=== PATIENT | male | born 1950 | race Caucasian/White ===

== ENCOUNTER 2022-06-26 10:43 | Outpatient (REF) | payer OTHER, SELFPAY ==
[2022-06-26 14:36] LABS: Alanine Aminotransferase 29 U/L (0-40); Albumin Level 4.2 g/dL (3.5-5.0); Alkaline Phosphatase 94 U/L (39-117); Anion Gap 12 (12-20); Aspartate Amino Transferase 20 U/L (5-37); Bilirubin Total 0.9 mg/dL (0.0-1.0); Blood Urea Nitrogen 20 mg/dL (9-16); Calcium 9.3 mg/dL (8.4-10.2); Carbon Dioxide 29 mmol/L (22-29); Chloride 103 mmol/L (96-108); Cholesterol 141 mg/dL; Estimated Glomerular Filt Rate > 60; Glucose Random 111 mg/dL (60-115); HDL Cholesterol 48 mg/dL; LDL Cholesterol Calculated 69 mg/dl; Magnesium 1.8 mg/dL (1.6-2.6); Phosphorus 2.3 mg/dL (2.7-4.5); Potassium 3.8 mmol/L (3.3-5.1); Sodium 140 mmol/L (135-145); Total Protein 6.8 g/dL (6.5-8.0); Triglycerides 121 mg/dL
[2022-06-26 14:37] LABS: Hematocrit 46.6 % (42.0-52.0); Hemoglobin 15.8 g/dl (14.0-18.0); Mean Corpuscular HGB Conc 33.9 g/dl (31.0-36.0); Mean Corpuscular Hemoglobin 31.7 pg (27.0-33.0); Mean Corpuscular Volume 93.4 fL (80.0-98.0); Mean Platelet Volume 9.4 fL (9.4-12.4); Platelet Count 187 X10*3/uL (160-400); Red Blood Count 4.99 X10*6/uL (4.60-5.80); Red Cell Distribution Width 12.5 % (11.0-16.0); White Blood Count 8.3 X10*3/uL (4.8-10.8)
[2022-06-26 14:53] LABS: TSH reflex Free T4 1.83 uIU/mL (0.32-4.0)
== END 2022-06-26 10:44 | disposition home or self-care (01) ==
LOC: HO.WFDLDS 10:43
PROVIDERS: Visit Provider Hospitalist
DX: Z00.00 Encounter for general adult medical examination without abnormal findings (principal); K21.9 Gastro-esophageal reflux disease without esophagitis; E11.9 Type 2 diabetes mellitus without complications; I10 Essential (primary) hypertension; E66.3 Overweight
CPT/HCPCS: 36415; 80053; 80061; 83735; 84100; 84443; 85027

== ENCOUNTER 2022-10-03 12:39 | Outpatient (AMB) | payer OTHER, SELFPAY ==
[2022-10-03 12:46] VITALS: BP 152/80; PULSE 76; O2SAT 97; BMI 29.6
--- NOTE | 2022-10-03 12:46 | MHC.PC.OV ---
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 Required: No Accompanied by: Self / Same As Patient Allergies No Known Allergies Allergy (Verified 10/03/22 12:57) Medication List - Last Reconciled 10/03/22 by Keven Traore CNP amlodipine 10 mg PO DAILY 30 days atorvastatin 40 mg PO DAILY 30 days benazepril 20 mg PO BID blood pressure test kit-medium As directed chlorthalidone 25 mg PO DAILY 30 days citalopram 40 mg PO DAILY 30 days metformin 500 mg PO BID 30 days metoprolol succinate ER 50 mg PO DAILY 30 days omeprazole 20 mg PO DAILY 30 days sod phos di, mono-K phos mono 250 mg (Phospha Neutral) 1 tab PO BID tamsulosin 0.4 mg PO DAILY 30 days Tobacco use date assessed: 10/03/22 Fall risk assessment: No Falls in past year Last assessed Fall Risk: 10/03/22 Dental Screening Dental Screen Date: 10/03/22 Did you have a dental visit in the last 12 months?: Yes Did you have a dental problem in the last 6 months where you did not have access to dental care?: No Was dental information given to patient?: Patient has dentist HPI HPI Comments History of Present Illness Details 72-year-old male presents for medication refill He notes that he ran out of his antihypertensive medications 2-3 weeks ago No acute symptoms today. [facility] Medical History Acid reflux Arthritis Depression Diabetes Low back pain Overweight Rotator cuff arthropathy of left shoulder Umbilical hernia Surgical History Previous back surgery Family History Father High blood pressure Mother Cancer Social History Housing: Condominium Patient Tobacco Use Status: Former Tobacco user e-Cigarette/Vaping Use: Never Used service: No Current occupational status: retired Cognitive needs: No Hearing needs: No Vision needs: Yes Review of Systems Const Details: Const Denies chills, Denies fatigue, Denies fever(s), Denies headache(s) and Denies weakness ENT Denies dizziness and Denies headache(s) Card Denies chest pain, Denies lightheadedness, Denies dyspnea and Denies other (Palpitations) Resp Denies cough, Denies dyspnea, Denies wheezing and Denies other ( shortness of breath) GI Denies abdominal pain, Denies melena, Denies hematochezia, Denies change in bowel habits, Denies dyspepsia and Denies nausea Denies hematuria and Denies dysuria Musc Denies abnormal gait, Denies myalgias, Denies arthralgias, Denies numbness and Denies tingling Skin/Breast Denies rash, Denies unusual bruising and Denies wounds Neuro Denies abnormal gait, Denies dizziness, Denies headache(s), Denies memory loss, Denies numbness, Denies Sensory deficit (Neuro), Denies tingling and Denies weakness Psych Denies anxiety and Denies depression Endo Denies fatigue Aller/Immun Denies wheezing Physical exam (Primary Care) Vital Signs: Last Vital Signs Pulse 76 10/03/22 12:46 BP 152/80 H 10/03/22 12:46 Pulse Ox 97 10/03/22 12:46 BMI result Body Mass Index 29.6 Tobacco/Smoking Status: Tobacco use Status Tobacco use date assessed 10/03/22 10/03/22 12:50 Patient Tobacco Use Status Former Tobacco user 10/03/22 12:50 e-Cigarette/Vaping Use Never Used 10/03/22 12:50 Const Other: General: no acute distress and well developed Nutritional Appearance: well nourished Orientation/consciousness: patient oriented x3 HENMT Head: Yes normocephalic and Yes atraumatic Eyes General: appearance normal, both eyes and all related structures Pupils: Equal, round and reactive pupils present EOM: EOMs intact bilaterally Resp Effort & Inspection: normal respiratory effort Auscultation: clear to auscultation bilaterally Cardio Rate: regular rate Rhythm: regular rhythm Heart sounds: S1 normal heart sound present, S2 normal heart sound present, no gallops, no murmurs and no rubs GI Palpation (GI): No Abdominal aortic bruit present, Soft to palpation, nontender, No hepatosplenomegaly present and No Rebound tenderness present Auscultation: normal bowel sounds General: Yes no CVA tenderness Back/Spine/Pelvis Back: no CVA tenderness Cervical Spine: cervical ROM normal and No Cervical spine tenderness Thoracic/Lumbar Spine: thoraco-lumbar ROM normal, No pain with thoraco-lumbar ROM, No thoracic spinal tenderness and No lumbar spinal tenderness Extrem General: Yes normal to inspection, No edema and No calf tenderness Skin General: warm and dry. Normal skin color. Normal skin turgor Lesions: no lesions Rashes: no rashes Trauma: no lacerations or abrasions Wounds: no wounds Nails: normal Neuro General: patient oriented x3, gait normal and no focal neuro deficit Cranial nerves: Yes Equal, round and reactive pupils present Cognition (Neuro): normal cognition Gait exam (Neuro): Normal gait present Sensory Exam: No Sensory deficit (Neuro) Psych Affect: normal affect Results AMB Hemoglobin A1c AMB Hemoglobin A1c 6.1 % Last Edit by Tommy Delgado CMA on 10/03/22 13:21 Assessment and Plan Assessment & Plan (1) Hypertension: Code(s): I10 - Essential (primary) hypertension Plan: His blood pressure is 140/80, above goal of less than 130/80 Antihypertensive medications refilled. Take as prescribed Low-sodium diet encouraged Follow-up in 1 month or return sooner with concerns or symptoms Verbalized understanding and agreed with treatment plan. (2) Diabetes: Code(s): E11.9 - Type 2 diabetes mellitus without complications Plan: His A1c today 6.1%, within goal of less than 7.0% Take metformin as prescribed ADA diet and routine exercise encouraged Follow-up in 1 month or return sooner with symptoms or concerns Verbalized understanding and agreed with treatment plan. Orders: Orders AMB Hemoglobin A1c Today Z13.9 - Encounter for screening, unspecified Medications: Changed From amlodipine 10 mg PO DAILY 30 days 30 tabs 1RF To amlodipine 10 mg PO DAILY 90 days 90 tabs 0RF Refilled metoprolol succinate ER 50 mg PO DAILY 30 days 30 tabs 0RF chlorthalidone 25 mg PO DAILY 30 days 30 tabs 0RF benazepril 20 mg PO BID 60 tabs 2RF Coding Level of Care Code Est Pt Level 3 (85312) Diagnoses Hypertension I10 Diabetes E11.9 Time Spent (min) 25
[2022-10-03 13:10] VITALS: BP 140/80
== END 2022-10-03 13:14 | disposition home or self-care (01) ==
PROVIDERS: PCP Hospitalist; Visit Provider Nurse Practitioner Family
DX: I10 Essential (primary) hypertension (principal); E11.9 Type 2 diabetes mellitus without complications; Z13.9 Encounter for screening, unspecified
CPT/HCPCS: 83036; 99213

== ENCOUNTER 2022-11-28 12:48 | Outpatient (AMB) | payer OTHER, SELFPAY ==
[2022-11-28 12:51] VITALS: BP 142/80; PULSE 104; RESP 12; TEMP 36.5; O2SAT 97; BMI 28.7
--- NOTE | 2022-11-28 12:51 | MHC.PC.OV ---
Vital Signs 11/28/22 12:51 11/28/22 13:09 Height 5 ft 7 in Weight 183 lb 2 oz BMI 28.7 BP 142/80 H 140/70 H Blood Pressure Location Lt brachial Rt brachial Position Sitting Sitting Respiration 12 Pulse 104 H 100 Pulse Source Pulse Oximeter Palpation Temp 97.7 F Temp Source Temporal Artery Scan Pulse Oximetry (%) 97 Oxygen Delivery Method Room Air Intake Visit Reasons: 1 mos HTN Intake Note: Patient states that he has been having problems with your lower back. Patient would also like referral for an eye doctor. Patient states that he also has been having an on and off cough that seems kind of random and sometimes its shallow and sometimes its deep. 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 Required: No Accompanied by: Self / Same As Patient Allergies No Known Allergies Allergy (Verified 11/28/22 13:03) Medication List - Last Reconciled 11/28/22 by Keven Traore CNP amlodipine 10 mg PO DAILY 90 days atorvastatin 40 mg PO DAILY 30 days benazepril 20 mg PO BID blood pressure test kit-medium As directed chlorthalidone 25 mg PO DAILY 30 days citalopram 40 mg PO DAILY 30 days metformin 500 mg PO BID 30 days metoprolol succinate ER 50 mg PO DAILY 30 days omeprazole 20 mg PO DAILY 30 days sod phos di, mono-K phos mono 250 mg (Phospha Neutral) 1 tab PO BID tamsulosin 0.4 mg PO DAILY 30 days Tobacco use date assessed: 10/03/22 Fall risk assessment: No Falls in past year Last assessed Fall Risk: 11/28/22 Dental Screening Dental Screen Date: 11/28/22 Did you have a dental visit in the last 12 months?: Yes Did you have a dental problem in the last 6 months where you did not have access to dental care?: No Was dental information given to patient?: Patient has dentist HPI HPI Comments History of Present Illness Details 72-year-old male presents for hypertension follow-up. His blood pressure was elevated, 140/80 during his last visit His initial blood pressure reading today is 142/80 He notes he ran out of Amlodipine, Metoprolol, and Chlorthalidone and has not taken these medications for the past 1 week. He also notes he is out of Citalopram. He reports intermittent nonproductive for the past 2 months. No associated cold or respiratory symptoms. [facility] Medical History Overweight Umbilical hernia Rotator cuff arthropathy of left shoulder Depression Acid reflux Diabetes Arthritis Low back pain Surgical History Previous back surgery Family History Father High blood pressure Mother Cancer Social History Housing: Apartment Patient Tobacco Use Status: Former Tobacco user e-Cigarette/Vaping Use: Never Used service: No Current occupational status: retired Cognitive needs: No Hearing needs: No Vision needs: Yes Review of Systems Const Details: Const Denies chills, Denies fatigue, Denies fever(s), Denies headache(s) and Denies weakness ENT Denies dizziness and Denies headache(s) Card Denies chest pain, Denies lightheadedness, Denies dyspnea and Denies other (Palpitations) Resp Denies cough, Denies dyspnea, Denies wheezing and Denies other ( shortness of breath) GI Denies abdominal pain, Denies melena, Denies hematochezia, Denies change in bowel habits, Denies dyspepsia and Denies nausea Denies hematuria and Denies dysuria Musc Denies abnormal gait, Denies myalgias, Denies arthralgias, Denies numbness and Denies tingling Skin/Breast Denies rash, Denies unusual bruising and Denies wounds Neuro Denies abnormal gait, Denies dizziness, Denies headache(s), Denies memory loss, Denies numbness, Denies Sensory deficit (Neuro), Denies tingling and Denies weakness Psych Denies anxiety, Denies depression, Denies memory loss Endo Denies cold intolerance, Denies fatigue, Denies heat intolerance, Denies polydipsia and Denies polyuria Aller/Immun Denies wheezing Physical exam (Primary Care) Vital Signs: Last Vital Signs Temp 97.7 F 11/28/22 12:51 Pulse 104 H 11/28/22 12:51 Resp 12 11/28/22 12:51 BP 142/80 H 11/28/22 12:51 Pulse Ox 97 11/28/22 12:51 Oxygen Delivery Method Room Air 11/28/22 12:51 BMI result Body Mass Index 28.7 Tobacco/Smoking Status: Tobacco use Status Tobacco use date assessed 10/03/22 11/28/22 12:58 Patient Tobacco Use Status Former Tobacco user 11/28/22 12:58 e-Cigarette/Vaping Use Never Used 11/28/22 12:58 Const Other: General: no acute distress and well developed Nutritional Appearance: well nourished Orientation/consciousness: patient oriented x3 HENMT Head: Yes normocephalic and Yes atraumatic Eyes General: appearance normal, both eyes and all related structures Pupils: Equal, round and reactive pupils present EOM: EOMs intact bilaterally Resp Effort & Inspection: normal respiratory effort Auscultation: clear to auscultation bilaterally Cardio Rate: regular rate Rhythm: regular rhythm Heart sounds: S1 normal heart sound present, S2 normal heart sound present, no gallops, no murmurs and no rubs GI Palpation (GI): No Abdominal aortic bruit present, Soft to palpation, nontender, No hepatosplenomegaly present and No Rebound tenderness present Auscultation: normal bowel sounds General: Yes no CVA tenderness Back/Spine/Pelvis Back: no CVA tenderness Cervical Spine: cervical ROM normal and No Cervical spine tenderness Thoracic/Lumbar Spine: thoraco-lumbar ROM normal, No pain with thoraco-lumbar ROM, No thoracic spinal tenderness and No lumbar spinal tenderness Extrem General: Yes normal to inspection, No edema and No calf tenderness Skin General: warm and dry. Normal skin color. Normal skin turgor Lesions: no lesions Rashes: no rashes Trauma: no lacerations or abrasions Wounds: no wounds Nails: normal Neuro General: patient oriented x3, gait normal and no focal neuro deficit Cranial nerves: Yes Equal, round and reactive pupils present Cognition (Neuro): normal cognition Gait exam (Neuro): Normal gait present Sensory Exam: No Sensory deficit (Neuro) Psych Appearance: grossly normal Affect: normal affect Attitude: cooperative Thought process: Normal thought process present Assessment and Plan Assessment & Plan (1) Hypertension: Code(s): I10 - Essential (primary) hypertension Plan: Resting blood pressure is 140/70, above goal of less than 130/80 Medications refilled Continue with current treatment regimen Low-sodium diet encouraged Advised to check blood pressure daily, record readings, and bring to nurse visit Follow-up with nurse for blood pressure check in 1 week Return in 2 months for hypertension and diabetes follow-up or sooner with symptoms or concerns Verbalized understanding and agreed with treatment plan (2) Nonproductive cough: Code(s): R05.8 - Other specified cough Plan: Reports nonproductive cough off and on for the past 2 months. No associated viral or cold symptoms Likely due to adverse effect of benazepril Lisinopril discontinued Losartan ordered. Take with order antihypertensives as prescribed Return with worsening or new symptoms Verbalized understanding and agreed with treatment plan. Medications: New losartan 50 mg PO DAILY 30 days 30 tabs 3RF Refilled citalopram 40 mg PO DAILY 30 days 30 tabs 3RF amlodipine 10 mg PO DAILY 90 days 90 tabs 1RF chlorthalidone 25 mg PO DAILY 30 days 30 tabs 3RF metoprolol succinate ER 50 mg PO DAILY 30 days 30 tabs 3RF tamsulosin 0.4 mg PO DAILY 30 days 30 caps 1RF atorvastatin 40 mg PO DAILY 30 days 30 tabs 3RF Discontinued benazepril Discontinued Reason: Doctor's Order 20 mg PO BID 60 tabs 2RF Coding Level of Care Code Est Pt Level 3 (70831) Diagnoses Hypertension I10 Nonproductive cough R05.8
[2022-11-28 13:09] VITALS: BP 140/70; PULSE 100
== END 2022-11-28 13:22 | disposition home or self-care (01) ==
PROVIDERS: PCP Hospitalist; Visit Provider Nurse Practitioner Family
DX: I10 Essential (primary) hypertension (principal); R05.8 Other specified cough
CPT/HCPCS: 99213

== ENCOUNTER 2023-01-30 12:24 | Outpatient (AMB) | payer OTHER, SELFPAY ==
[2023-01-30 12:32] VITALS: BP 130/68; PULSE 63; O2SAT 96; BMI 30.9
--- NOTE | 2023-01-30 12:32 | A.OFFPC_ITS ---
Vital Signs 01/30/23 12:32 01/30/23 13:09 Height 5 ft 7 in Weight 197 lb 8 oz BMI 30.9 BP 130/68 120/60 Blood Pressure Location Lt brachial Rt brachial Position Sitting Sitting Pulse 63 Pulse Source Pulse Oximeter Pulse Oximetry (%) 96 Oxygen Delivery Method Room Air Intake Visit Reasons: f/u DM, HTN Intake Note: Patient is here to follow up on his diabetes and hypertension. Patient would refill on Metformin and Omeprazole. Allergies No Known Allergies Allergy (Verified 01/30/23 12:54) Medication List - Last Reconciled 01/30/23 by Keven Traore CNP amlodipine 10 mg PO DAILY 90 days atorvastatin 40 mg PO DAILY 30 days blood pressure test kit-medium As directed chlorthalidone 25 mg PO DAILY 30 days citalopram 40 mg PO DAILY 30 days losartan 50 mg PO DAILY 30 days metformin 500 mg PO BID 30 days metoprolol succinate ER 50 mg PO DAILY 30 days omeprazole 20 mg PO DAILY 30 days sod phos di, mono-K phos mono 250 mg (Phospha Neutral) 1 tab PO BID tamsulosin 0.4 mg PO DAILY 30 days Tobacco use date assessed: 01/30/23 Fall risk assessment: No Falls in past year Last assessed Fall Risk: 01/30/23 HPI HPI Comments History of Present Illness Details 72-year-old male presents for hypertensi on and diabetes follow-up He admits to taking his medications without adverse reactions He notes that his cough has improved since lisinopril was substituted with losartan He denies acute symptoms at this time He notes that he has an appointment scheduled for diabetic retinal exam next month [facility] Medical History Overweight Umbilical hernia Rotator cuff arthropathy of left shoulder Depression Acid reflux Diabetes Arthritis Low back pain Surgical History Previous back surgery Family History Father High blood pressure Mother Cancer Social History Housing: Apartment Patient Tobacco Use Status: Former Tobacco user e-Cigarette/Vaping Use: Never Used service: No Current occupational status: retired Cognitive needs: No Hearing needs: No Vision needs: Yes Review of Systems Const Details: Const Denies chills, Denies fatigue, Denies fever(s), Denies headache(s) and Denies weakness ENT Denies dizziness and Denies headache(s) Card Denies chest pain, Denies lightheadedness, Denies dyspnea and Denies other (Palpitations) Resp Denies cough, Denies dyspnea, Denies wheezing and Denies other ( shortness of breath) GI Denies abdominal pain, Denies melena, Denies hematochezia, Denies change in bowel habits, Denies dyspepsia and Denies nausea Denies hematuria and Denies dysuria Musc Denies abnormal gait, Denies myalgias, Denies arthralgias, Denies numbness and Denies tingling Skin/Breast Denies rash, Denies unusual bruising and Denies wounds Neuro Denies abnormal gait, Denies dizziness, Denies headache(s), Denies memory loss, Denies numbness, Denies Sensory deficit (Neuro), Denies tingling and Denies weakness Psych Denies anxiety, Denies depression, Denies memory loss Endo Denies cold intolerance, Denies fatigue, Denies heat intolerance, Denies polydipsia and Denies polyuria Aller/Immun Denies wheezing Physical exam (Primary Care) Vital Signs: Last Vital Signs Pulse 63 01/30/23 12:32 BP 130/68 01/30/23 12:32 Pulse Ox 96 01/30/23 12:32 Oxygen Delivery Method Room Air 01/30/23 12:32 BMI result Body Mass Index 30.9 Tobacco/Smoking Status: Tobacco use Status Tobacco use date assessed 01/30/23 01/30/23 12:39 Patient Tobacco Use Status Former Tobacco user 01/30/23 12:33 e-Cigarette/Vaping Use Never Used 01/30/23 12:33 Const Other: General: no acute distress and well developed Nutritional Appearance: well nourished Orientation/consciousness: patient oriented x3 HENMT Head: Yes normocephalic and Yes atraumatic Eyes General: appearance normal, both eyes and all related structures Pupils: Equal, round and reactive pupils present EOM: EOMs intact bilaterally Resp Effort & Inspection: normal respiratory effort Auscultation: clear to auscultation bilaterally Cardio Rate: regular rate Rhythm: regular rhythm Heart sounds: S1 normal heart sound present, S2 normal heart sound present, no gallops, no murmurs and no rubs GI Palpation (GI): No Abdominal aortic bruit present, Soft to palpation, nontender, No hepatosplenomegaly present and No Rebound tenderness present Auscultation: normal bowel sounds General: Yes no CVA tenderness Back/Spine/Pelvis Back: no CVA tenderness Cervical Spine: cervical ROM normal and No Cervical spine tenderness Thoracic/Lumbar Spine: thoraco-lumbar ROM normal, No pain with thoraco-lumbar ROM, No thoracic spinal tenderness and No lumbar spinal tenderness Extrem General: Yes normal to inspection, No edema and No calf tenderness Skin General: warm and dry. Normal skin color. Normal skin turgor Lesions: no lesions Rashes: no rashes Trauma: no lacerations or abrasions Wounds: no wounds Nails: normal Neuro General: patient oriented x3, gait normal and no focal neuro deficit Cranial nerves: Yes Equal, round and reactive pupils present Cognition (Neuro): normal cognition Gait exam (Neuro): Normal gait present Sensory Exam: No Sensory deficit (Neuro) Psych Appearance: grossly normal Affect: normal affect Attitude: cooperative Thought process: Normal thought process present Assessment and Plan Assessment & Plan (1) Diabetes: Code(s): E11.9 - Type 2 diabetes mellitus without complications Plan: A1c today is 6.3%, within goal of less than 7.0%. Previous A1c was 6.1% Continue with current treatment regimen ADA diet and routine exercise encouraged His last LDL in June 2022 was 69, within goal of less than 70. Will recheck lipid panel. Advised to fast for 10-12 hours, may drink water only, and get blood work done before his next visit No record of urine microalbumin/creatinine ratio. Will check urine micr oalbumin/creatinine ratio Follow-up next month with Ophthalmology for diabetic retinal exam Return in 3 months or sooner with symptoms or concerns Verbalized understanding and agreed with treatment plan (2) Hypertension: Code(s): I10 - Essential (primary) hypertension Qualifiers: Hypertension type: primary hypertension Qualified Code(s): I10 - Essential (primary) hypertension Plan: Resting blood pressure is 120/60, within goal of less than 130/80 Continue with current treatment regimen Low-sodium diet encouraged Follow-up in 3 months or return sooner with symptoms or concerns Verbalized understanding and agreed with treatment plan Orders: Orders Microalbumin, Random (w Creat) Today E11.9 - Type 2 diabetes mellitus without complications Lipid Panel Today E11.9 - Type 2 diabetes mellitus without complications Medications: Changed From omeprazole 20 mg PO DAILY 30 days 30 caps 1RF To omeprazole 20 mg PO DAILY 90 caps 1RF 90 days Refilled metformin 500 mg PO BID 60 tabs 3RF 30 days Coding Level of Care Code Est Pt Level 3 (02092) Diagnoses Diabetes E11.9 Primary hypertension I10 Hypertension type: primary hypertension
[2023-01-30 13:09] VITALS: BP 120/60
== END 2023-01-30 13:06 | disposition home or self-care (01) ==
PROVIDERS: PCP Nurse Practitioner Family; Visit Provider Nurse Practitioner Family
DX: E11.9 Type 2 diabetes mellitus without complications (principal); I10 Essential (primary) hypertension
CPT/HCPCS: 83036; 99213

== ENCOUNTER 2023-06-05 13:10 | Outpatient (AMB) | payer OTHER, SELFPAY ==
[2023-06-05 13:11] VITALS: BP 122/60; PULSE 77; RESP 13; TEMP 36.6; O2SAT 97; BMI 30.7
--- NOTE | 2023-06-05 13:11 | MHC.PC.OV ---
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 Accompanied by: Self / Same As Patient Allergies No Known Allergies Allergy (Verified 06/05/23 13:24) Medication List - Last Reconciled 06/05/23 by Keven Traore CNP amlodipine 10 mg PO DAILY 90 days atorvastatin 40 mg PO DAILY 30 days blood pressure test kit-medium As directed chlorthalidone 25 mg PO DAILY 30 days citalopram 40 mg PO DAILY 30 days losartan 50 mg PO DAILY 30 days metformin 500 mg PO BID 30 days metoprolol succinate ER 50 mg PO DAILY 30 days omeprazole 20 mg PO DAILY 90 days sod phos di, mono-K phos mono 250 mg (Phospha Neutral) 1 tab PO BID tamsulosin 0.4 mg PO DAILY 90 days Tobacco use date assessed: 06/05/23 Last assessed Fall Risk: 06/05/23 Dental Screening Dental Screen Date: 06/05/23 Did you have a dental visit in the last 12 months?: No Did you have a dental problem in the last 6 months where you did not have access to dental care?: No Was dental information given to patient?: Yes HPI HPI Comments History of Present Illness Details 72-year-old male presents for diabetes and hypertension follow-up He admits to taking his medications as prescribed without adverse reactions He offers no complaints and denies acute symptoms at this time [facility] Medical History Overweight Umbilical hernia Rotator cuff arthropathy of left shoulder Depression Acid reflux Diabetes Arthritis Low back pain Surgical History Previous back surgery Family History (Updated 06/05/23 @ 13:24 by JYOTI Macias) Father High blood pressure Mother Cancer Social History Housing: Apartment Patient Tobacco Use Status: Former Tobacco user e-Cigarette/Vaping Use: Never Used service: No Current occupational status: retired Cognitive needs: No Hearing needs: No Vision needs: No Review of Systems Const Details: Const Denies chills, Denies fatigue, Denies fever(s), Denies headache(s) and Denies weakness ENT Denies dizziness and Denies headache(s) Card Denies chest pain, Denies lightheadedness, Denies dyspnea and Denies other (Palpitations) Resp Denies cough, Denies dyspnea, Denies wheezing and Denies other ( shortness of breath) GI Denies abdominal pain, Denies melena, Denies hematochezia, Denies change in bowel habits, Denies dyspepsia and Denies nausea Denies hematuria and Denies dysuria Musc Denies abnormal gait, Denies myalgias, Denies arthralgias, Denies numbness and Denies tingling Skin/Breast Denies rash, Denies unusual bruising and Denies wounds Neuro Denies abnormal gait, Denies dizziness, Denies headache(s), Denies memory loss, Denies numbness, Denies Sensory deficit (Neuro), Denies tingling and Denies weakness Psych Denies anxiety, Denies depression, Denies memory loss Endo Denies cold intolerance, Denies fatigue, Denies heat intolerance, Denies polydipsia and Denies polyuria Aller/Immun Denies wheezing Physical exam (Primary Care) Vital Signs: Last Vital Signs Temp 98 F 06/05/23 13:11 Pulse 77 06/05/23 13:11 Resp 13 06/05/23 13:11 BP 122/60 06/05/23 13:11 Pulse Ox 97 06/05/23 13:11 Oxygen Delivery Method Room Air 06/05/23 13:11 BMI result Body Mass Index 30.7 Tobacco/Smoking Status: Tobacco use Status Tobacco use date assessed 01/30/23 06/05/23 13:17 Patient Tobacco Use Status Former Tobacco user 06/05/23 13:17 e-Cigarette/Vaping Use Never Used 06/05/23 13:17 Const Other: General: no acute distress and well developed Nutritional Appearance: well nourished Orientation/consciousness: patient oriented x3 HENMT Head: Yes normocephalic and Yes atraumatic Eyes General: appearance normal, both eyes and all related structures Pupils: Equal, round and reactive pupils present EOM: EOMs intact bilaterally Resp Effort & Inspection: normal respiratory effort Auscultation: clear to auscultation bilaterally Cardio Rate: regular rate Rhythm: regular rhythm Heart sounds: S1 normal heart sound present, S2 normal heart sound present, no gallops, no murmurs and no rubs GI Palpation (GI): No Abdominal aortic bruit present, Soft to palpation, nontender, No hepatosplenomegaly present and No Rebound tenderness present Auscultation: normal bowel sounds General: Yes no CVA tenderness Back/Spine/Pelvis Back: no CVA tenderness Cervical Spine: cervical ROM normal and No Cervical spine tenderness Thoracic/Lumbar Spine: thoraco-lumbar ROM normal, No pain with thoraco-lumbar ROM, No thoracic spinal tenderness and No lumbar spinal tenderness Extrem General: Yes normal to inspection, No edema and No calf tenderness Skin General: warm and dry. Normal skin color. Normal skin turgor Neuro General: patient oriented x3, gait normal and no focal neuro deficit Cranial nerves: Yes Equal, round and reactive pupils present Cognition (Neuro): normal cognition Gait exam (Neuro): Normal gait present Sensory Exam: No Sensory deficit (Neuro) Psych Appearance: grossly normal Affect: normal affect Attitude: cooperative Thought process: Normal thought process present Results AMB Hemoglobin A1c AMB Hemoglobin A1c 7.0 % Last Edit by JYOTI Macias on 06/05/23 13:27 Assessment and Plan Assessment & Plan (1) Hypertension: Code(s): I10 - Essential (primary) hypertension Qualifiers: Hypertension type: primary hypertension Qualified Code(s): I10 - Essential (primary) hypertension Plan: Blood pressure is 122/60, within goal of less than 130/80 Continue current treatment regimen Low-sodium diet encouraged Encouraged to get labs done before his next visit Follow-up in 1 month for an extended physical exam Return sooner with symptoms or concerns Verbalized understanding and agreed with treatment plan (2) Diabetes: Code(s): E11.9 - Type 2 diabetes mellitus without complications Plan: A1c today is 7.0%, slightly above goal of less than 7.0%. Previous A1c was 6.3% Glipizide 5 mg daily ordered. Take as prescribed ADA diet and routine exercise encouraged His last diabetic eye exam was on 03/07/2023 Will recheck A1c in 3 months Verbalized understanding and agreed with the treatment plan Orders: Orders AMB Hemoglobin A1c Today E11.9 - Type 2 diabetes mellitus without complications Complete Blood Count Auto Diff Today Z00.00 - Encounter for general adult medical examination without abnormal findings TSH reflex Free T4 Today Z00.00 - Encounter for general adult medical examination without abnormal findings PSA, Ultra Sensitive Today Z00.00 - Encounter for general adult medical examination without abnormal findings Comprehensive Post. Panel Fast Today Z00.00 - Encounter for general adult medical examination without abnormal findings Lipid Panel Today E11.9 - Type 2 diabetes mellitus without complications, Z00.00 - Encounter for general adult medical examination without abnormal findings UA CC w/rflx Micro + Cult Today Z00.00 - Encounter for general adult medical examination without abnormal findings Microalbumin, Random (w Creat) Today E11.9 - Type 2 diabetes mellitus without complications Medications: New glipizide 5 mg PO DAILY 30 tabs 3RF 30 days Coding Level of Care Code Est Pt Level 4 (83668) Diagnoses Primary hypertension I10 Hypertension type: primary hypertension Diabetes E11.9
== END 2023-06-05 13:37 | disposition home or self-care (01) ==
PROVIDERS: PCP Nurse Practitioner Family; Visit Provider Nurse Practitioner Family
DX: I10 Essential (primary) hypertension (principal); E11.9 Type 2 diabetes mellitus without complications
CPT/HCPCS: 83036; 99214

== ENCOUNTER 2023-07-23 10:43 | Outpatient (REF) | payer OTHER, SELFPAY ==
[2023-07-23 14:34] LABS: MANUAL DIFF FLAG NO
[2023-07-23 14:36] LABS: Appearance Urine Clear; Color Urine Dark Yellow; Glucose Urine UA Negative (Negative); Leukocyte Esterase Urine Negative (Negative); Nitrite Urine Negative (Negative); PH 7.5 (5.0-9.0); Specific Gravity - Urine 1.025 (1.005-1.025); Urine Blood Negative (Negative); Urine Ketones Trace mg/dL (Negative); Urine Protein Negative (Neg-Trace)
[2023-07-23 14:40] LABS: Basophils Absolute Auto 0.1 X10*3/uL (0.0-0.2); Basophils Percent Auto 1.4 % (0-2); Eosinophils Absolute Auto 0.3 X10*3/uL (0.0-0.4); Hematocrit 41.5 % (42.0-52.0); Hemoglobin 14.5 g/dl (14.0-18.0); Imm Gran Abs Auto 0.02 X10*3/uL (0.00-0.03); Imm Gran Pct Auto 0.2 % (0.0-0.4); Lymphocytes Absolute Auto 2.3 X10*3/uL (1.2-4.9); Lymphocytes Percent Auto 27.4 % (20-40); Mean Corpuscular HGB Conc 34.9 g/dl (31.0-36.0); Mean Corpuscular Hemoglobin 31.7 pg (27.0-33.0); Mean Corpuscular Volume 90.6 fL (80.0-98.0); Mean Platelet Volume 9.2 fL (9.4-12.4); Monocytes Absolute Auto 0.7 X10*3/uL (0.1-1.2); Monocytes Percent Auto 8.7 % (2-11); Neutrophils Percent Auto 59.3 % (45-73); Platelet Count 196 X10*3/uL (160-400); Red Blood Count 4.58 X10*6/uL (4.60-5.80); Red Cell Distribution Width 12.5 % (11.0-16.0); White Blood Count 8.4 X10*3/uL (4.8-10.8)
[2023-07-23 15:02] LABS: Alanine Aminotransferase 19 U/L (0-40); Albumin Level 4.3 g/dL (3.5-5.0); Alkaline Phosphatase 82 U/L (39-117); Anion Gap 17 (12-20); Aspartate Amino Transferase 21 U/L (5-37); Bilirubin Total 0.7 mg/dL (0.0-1.0); Blood Urea Nitrogen 26 mg/dL (9-16); Calcium 9.7 mg/dL (8.4-10.2); Carbon Dioxide 23 mmol/L (22-29); Chloride 103 mmol/L (96-108); Cholesterol 123 mg/dL (<200); Estimated Glomerular Filt Rate 48; Glucose Fasting 102 mg/dL (60-99); HDL Cholesterol 43 mg/dL (>40); LDL Cholesterol Calculated 59 mg/dL (<100); Potassium 3.2 mmol/L (3.3-5.1); Sodium 140 mmol/L (135-145); Total Protein 7.3 g/dL (6.5-8.0); Triglycerides 106 mg/dL (<150)
[2023-07-23 15:05] LABS: Creatinine Urine 197.15 mg/dL; Microalbum/Creatinine Ratio Ur 5.5 ug/mg cr (<30)
[2023-07-23 15:19] LABS: TSH reflex Free T4 2.27 uIU/mL (0.32-4.0)
[2023-08-01 00:37] LABS: PSA, Ultra Sensitive 3.99 ng/mL
== END 2023-07-23 10:44 | disposition home or self-care (01) ==
LOC: HO.WFDLDS 10:43
PROVIDERS: Visit Provider Nurse Practitioner Family
DX: Z00.00 Encounter for general adult medical examination without abnormal findings (principal); E11.9 Type 2 diabetes mellitus without complications; Z12.5 Encounter for screening for malignant neoplasm of prostate
CPT/HCPCS: 36415; 80053; 80061; 81003; 82043; 82570; 84153; 84443; 85025

== ENCOUNTER 2023-08-17 15:02 | Outpatient (AMB) | payer OTHER, SELFPAY ==
--- NOTE | 2023-08-17 15:13 | A.OFFPC_ITS ---
Intake Visit Reasons: CPE AND LABS Allergies No Known Allergies Allergy (Verified 06/05/23 13:24) Tobacco use date assessed: 06/05/23 Dental Screening Dental Screen Date: 06/05/23 [facility] Medical History Overweight Umbilical hernia Rotator cuff arthropathy of left shoulder Depression Acid reflux Diabetes Arthritis Low back pain Surgical History Previous back surgery Family History (Updated 06/05/23 @ 13:24 by JYOTI Macias) Father High blood pressure Mother Cancer Social History Housing: Apartment Patient Tobacco Use Status: Former Tobacco user e-Cigarette/Vaping Use: Never Used service: No Current occupational status: retired Cognitive needs: No Hearing needs: No Vision needs: No Physical exam (Primary Care) Tobacco/Smoking Status: Tobacco use Status Tobacco use date assessed 06/05/23 06/05/23 13:25 Patient Tobacco Use Status Former Tobacco user 06/05/23 13:17 e-Cigarette/Vaping Use Never Used 06/05/23 13:17 Coding
--- NOTE | 2023-08-17 15:16 | A.OFFPC_ITS ---
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 Certified Required: No Accompanied by: Self / Same As Patient Allergies No Known Allergies Allergy (Verified 08/17/23 15:24) Medication List - Last Reconciled 08/17/23 by Keven Traore CNP amlodipine 10 mg PO DAILY 90 days atorvastatin 40 mg PO DAILY 30 days blood pressure test kit-medium As directed chlorthalidone 25 mg PO DAILY 30 days citalopram 40 mg PO DAILY 30 days glipizide 5 mg PO DAILY 30 days losartan 50 mg PO DAILY 30 days metformin 500 mg PO BID 30 days metoprolol succinate ER 50 mg PO DAILY 30 days omeprazole 20 mg PO DAILY 90 days sod phos di, mono-K phos mono 250 mg (Phospha Neutral) 1 tab PO BID tamsulosin 0.4 mg PO DAILY 90 days Tobacco use date assessed: 08/17/23 Fall risk assessment: No Falls in past year Last assessed Fall Risk: 08/17/23 Dental Screening Dental Screen Date: 08/17/23 Did you have a dental visit in the last 12 months?: No Did you have a dental problem in the last 6 months where you did not have access to dental care?: No Was dental information given to patient?: Yes HPI HPI Comments History of Present Illness Details 73-year-old male presents for an extende d physical exam He has past medical history significant for hypertension, diabetes, GERD, obesity, and depression He admits to taking his medications as prescribed without adverse reactions He notes that he generally eats healthy but does not exercise. He plans on losing weight He offers no complaints and denies acute symptoms at this time He notes that his last colonoscopy was 4-5 years ago at [facility] He states that he has up-to-date on the pneumococcal vaccines He denies history of shingles vaccines in notes that he does not want the vaccines Last eye exam 03/07/2022: [facility] Medical History Overweight Umbilical hernia Rotator cuff arthropathy of left shoulder Depression Acid reflux Diabetes Arthritis Low back pain Surgical History Previous back surgery Family History (Updated 06/05/23 @ 13:24 by JYOTI Macias) Father High blood pressure Mother Cancer Social History Housing: Apartment Patient Tobacco Use Status: Former Tobacco user e-Cigarette/Vaping Use: Never Used service: No Current occupational status: retired Cognitive needs: No Hearing needs: No Vision needs: No Questionnaire PHQ-9 Over the last 2 weeks, how often have you been bothered by any of the following problems? 1. Little interest or pleasure in doing things: not at all 2. Feeling down, depressed, or hopeless: not at all 3. Trouble falling or staying asleep, or sleeping too much: not at all 4. Feeling tired or having little energy: not at all 5. Poor appetite or overeating: not at all 6. Feeling bad about yourself - or that you are a failure or have let yourself or your family down: not at all 7. Trouble concentrating on things, such as reading the newspaper or watching television: not at all 8. Moving or speaking so slowly that other people could have noticed. Or the opposite - being so fidgety or restless that you have been moving around a lot more than usual: not at all 9. Thoughts that you would be better off or of hurting yourself in some way: not at all Total score: 0 Depression Screening Interpretation: Negative Depression Screening Done: Yes 97653 - PHQ-9 Billing: Yes Source: Developed by Drs. Logan Montgomery, Eri Sylvester, Jorge Michaels and colleagues, with an educational urmila from [employer]. Thrive Questionnaire Date Thrive assessed: 08/17/23 I am a: Patient What is your living situation today?: I have a steady place to live Within the past 12 months, did the food you bought not last and you didn't have the money to get more?: Never true Within the past 12 months, did you worry whether your food would run out before you got money to buy more?: Never true Do you have trouble paying for medicines?: No Do you have trouble getting transportation to medical appointments?: No Do you have trouble paying your heating and electricity bill?: No Do you have trouble taking care of your child, family member or friend?: No Do you have trouble with day-to-day activities such as bathing, preparing meals, shopping, managing finances, etc.?: No Are you currently unemployed and looking for a job?: No Are you interested in more education?: No Please select the resources that you would like help with: None Currently or been in a relationship where the following occur: no concerns reported THRIVE Score: 0 AUDIT C Alcohol Use Questionnaire (AUDIT-C) 1. How often do you have a drink containing alcohol?: Monthly or less 2. How many drinks containing alcohol do you have on a typical day when you are drinking?: 1 or 2 3. How often do you have six or more drinks on one occasion?: Never Total Score: 1 ISAAC-7 AMB Questionnaire ISAAC-7 Date ISAAC - 7 assessed: 08/17/23 Feeling nervous, anxious, or on edge: 0 = Not at all Not being able to stop or control worryin = Not at all Worrying too much about different things: 0 = Not at all Trouble relaxin = Not at all Being so restless that it is hard to sit still: 0 = Not at all Becoming easily annoyed or irritable: 0 = Not at all Feeling afraid as if something awful might happen: 0 = Not at all Total ISAAC-7 score (0-4 normal; 5-9 mild; 10-14 moderate; 15-21 severe): 0 Source: Developed by Drs. Logan Montgomery, Eri Sylvester, Jorge Michaels and colleagues, with an educational urmila from [employer]. ISAAC-7 Assessment Billing ISAAC-7 Assessment Tool: ISAAC-7 Assessment [id number] Review of Systems Const Details: Denies chills, Denies fatigue, Denies fever(s), Denies headache(s) and Denies weakness HEENT Denies change in vision, Denies dizziness, Denies headache(s), Denies hearing loss, Denies nasal congestion, Denies sinus pain, Denies sinus pressure and Denies sore throat Card Denies chest pain, Denies lightheadedness, Denies dyspnea and Denies other (palpitations) Resp Denies cough, Denies dyspnea and Denies wheezing GI Denies abdominal pain, Denies melena, Denies hematochezia, Denies change in bowel habits, Denies dyspepsia and Denies nausea Denies hematuria and Denies dysuria Musc Denies abnormal gait, Denies myalgias, Denies arthralgias, Denies numbness and Denies tingling Skin/Breast Denies rash, Denies unusual bruising and Denies wounds Neuro Denies abnormal gait, Denies dizziness, Denies headache(s), Denies memory loss, Denies numbness, Denies Sensory deficit (Neuro), Denies tingling and Denies weakness Psych Denies anxiety, Denies depression and Denies memory loss Endo Denies cold intolerance, Denies fatigue, Denies heat intolerance, Denies polydipsia and Denies polyuria Santiago/Lymph Denies easy bleeding and Denies easy bruising Aller/Immun Denies wheezing Physical exam (Primary Care) Tobacco/Smoking Status: Tobacco use Status Tobacco use date assessed 06/05/23 06/05/23 13:25 Patient Tobacco Use Status Former Tobacco user 06/05/23 13:17 e-Cigarette/Vaping Use Never Used 06/05/23 13:17 Depression Screening Interpretation: Negative Currently or been in a relationship where the following occur: no concerns rep orted Const Other: General: no acute distress, well developed, alert and awake Nutritional Appearance: well nourished Orientation/consciousness: patient oriented x3 HENMT Head: Yes normocephalic and Yes atraumatic Ears: hearing grossly normal bilaterally and TM's normal bilaterally General nose exam: Normal external nose present and Normal nares present Mouth: Normal oral and palatal mucosa present and moist mucous membranes Teeth and gingiva: dentition normal Throat: Yes oropharynx normal Eyes Pupils: Equal, round and reactive pupils present and Pupil accommodation reflex normal EOM: EOMs intact bilaterally Neck Neck: Yes normal visual inspection, Yes no lymphadenopathy and Yes trachea midline Thyroid: Thyroid normal Carotids: no bruits Lymphatic: no lymphadenopathy noted Chest Chest palpation & inspection: normal inspection of the chest Resp Effort & Inspection: normal respiratory effort Auscultation: clear to auscultation bilaterally Cardio Rate: regular rate Rhythm: regular rhythm Heart sounds: S1 normal heart sound present, S2 normal heart sound present, no gallops, no murmurs and no rubs Bruits: no abdominal aortic bruits and no carotid bruits GI Palpation (GI): No Abdominal aortic bruit present, Soft to palpation, nontender, No hepatosplenomegaly present and No Rebound tenderness present Auscultation: normal bowel sounds General: Yes no CVA tenderness Back/Spine/Pelvis Back: no CVA tenderness Cervical Spine: cervical ROM normal and No Cervical spine tenderness Thoracic/Lumbar Spine: thoraco-lumbar ROM normal, No pain with thoraco-lumbar ROM, No thoracic spinal tenderness and No lumbar spinal tenderness Skin General: warm and dry. Normal skin color. Normal skin turgor Lesions: no lesions Rashes: no rashes Trauma: no lacerations or abrasions Wounds: no wounds Nails: normal Neuro General: patient oriented x3, gait normal and CN's II-XI intact bilaterally Cranial nerves: Yes Equal, round and reactive pupils present Cognition (Neuro): normal cognition Gait exam (Neuro): Normal gait present Motor exam (neuro): 5/5 motor strength present throughout Sensory Exam: No Sensory deficit (Neuro) Deep tendon reflexes (DTR's): Right patellar reflex intensity grade: 2+ and Left patellar reflex intensity grade: 2+ Extrem General: Yes normal to inspection, No edema and No calf tenderness Psych Appearance: grossly normal Affect: normal affect Attitude: cooperative Thought process: Normal thought process present Assessment and Plan Assessment & Plan (1) Normal physical exam: Code(s): Z00.00 - Encounter for general adult medical examination without abnormal findings Plan: No significant physical restrictions or limitations noted Continue current treatment regimen Healthy diet and routine exercise encouraged Encouraged to establish with a dentist for routine dental care Will request his [facility] record to review his last colonoscopy Follow-up in 1 month for diabetes or sooner with symptoms or concerns Verbalized understanding and agreed with treatment plan (2) Hypertension: Code(s): I10 - Essential (primary) hypertension Qualifiers: Hypertension type: primary hypertension Qualified Code(s): I10 - Essential (primary) hypertension Plan: Blood pressure is 122/64, within goal of less than 130/80 Continue current treatment regimen Low-sodium diet encouraged Will continue to monitor Verbalized understanding and agreed with the plan (3) Diabetes: Code(s): E11.9 - Type 2 diabetes mellitus without complications Plan: His last A1c in June was 7.0, slightly above goal of less than 7.0 Continue current treatment regimen Recent lipid LDL is 59, within goal of less than 100; microalbumin/creatinine ratio is 5.5 Follow-up in 1 month Verbalized understanding and agreed with the plan (4) Abnormal laboratory test result: Code(s): R89.9 - Unspecified abnormal finding in specimens from other organs, systems and tissues (5) Overweight: Code(s): E66.3 - Overweight Plan: He currently weighs 200 lb, BMI is 31.3 He generally eats healthy but does not exercise Declines referral to dietitian or weight management Healthy diet and routine exercise encouraged He may inform his PCP if he changes his mind on referral to dietitian or weight management May start him on Ozempic or Mounjaro for diabetes and weight management at his next visit if his health plan covers this medications Follow-up with symptoms or concerns Verbalized understanding and agreed with the plan Orders: Orders Basic Metabolic Panel Today R89.9 - Unspecified abnormal finding in specimens from other organs, systems and tissues Patient Instructions: Recent labs reviewed with the patient; unremarkable findings except for sent elevated BUN and creatinine, 26 and 1.45 respectively; low GFR, 48; slightly low potassium was 3.2 Poor renal function may be attributed to dehydration Will recheck renal function and make changes as needed Coding Level of Care Code Est Pt Prev Care >65y(60501) Diagnoses Normal physical exam Z00.00 Primary hypertension I10 Hypertension type: primary hypertension Diabetes E11.9 Abnormal laboratory test result R89.9 Overweight E66.3 Additional Codes ISAAC-7 Assessment Billing - ISAAC-7 Assessment Tool: ISAAC-7 Assessment [id number] ([id number])
[2023-08-17 15:18] VITALS: BP 122/64; PULSE 84; RESP 13; TEMP 36.6; O2SAT 97; BMI 31.3
== END 2023-08-17 15:47 | disposition home or self-care (01) ==
PROVIDERS: PCP Nurse Practitioner Family; Visit Provider Nurse Practitioner Family
DX: Z00.00 Encounter for general adult medical examination without abnormal findings (principal); I10 Essential (primary) hypertension; E11.9 Type 2 diabetes mellitus without complications; R89.9 Unspecified abnormal finding in specimens from other organs, systems and tissues; E66.3 Overweight
CPT/HCPCS: 99397

== ENCOUNTER 2023-08-17 15:43 | Outpatient (REF) | payer OTHER, SELFPAY ==
[2023-08-17 18:01] LABS: Anion Gap 14 (12-20); Blood Urea Nitrogen 16 mg/dL (9-16); Calcium 9.5 mg/dL (8.4-10.2); Carbon Dioxide 28 mmol/L (22-29); Chloride 103 mmol/L (96-108); Estimated Glomerular Filt Rate > 60; Glucose Random 60 mg/dL (60-115); Potassium 3.4 mmol/L (3.3-5.1); Sodium 142 mmol/L (135-145)
== END 2023-08-17 15:44 | disposition home or self-care (01) ==
LOC: HO.WFDLDS 15:43
PROVIDERS: Visit Provider Nurse Practitioner Family
DX: R89.9 Unspecified abnormal finding in specimens from other organs, systems and tissues (principal)
CPT/HCPCS: 36415; 80048

== ENCOUNTER 2023-09-18 11:59 | Outpatient (AMB) | payer OTHER, SELFPAY ==
--- NOTE | 2023-09-18 12:02 | MHC.PC.OV ---
Vital Signs 09/18/23 12:07 Height 5 ft 7 in Weight 200 lb BMI 31.3 BP 130/74 Blood Pressure Location Rt brachial Position Sitting Respiration 12 Pulse 70 Pulse Source Pulse Oximeter Temp 97.5 F Temp Source Temporal Artery Scan Pulse Oximetry (%) 94 Oxygen Delivery Method Room Air Intake Visit Reasons: follow labs diabetes Intake Note: patient here for follow up. 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 Allergies No Known Allergies Allergy (Verified 09/18/23 12:05) Tobacco use date assessed: 08/17/23 Fall risk assessment: No Falls in past year Dental Screening Dental Screen Date: 09/18/23 Did you have a dental visit in the last 12 months?: No Did you have a dental problem in the last 6 months where you did not have access to dental care?: No Was dental information given to patient?: Yes HPI HPI Comments History of Present Illness Details 73-year-old male presents for diabetes follow-up He admits to taking his medications as prescribed without adverse reactions He reports productive cough with white phlegm for the past 3 days. He reports associated running nose and sneezing. No constitutional symptoms. No sick contact [facility] Medical History Overweight Umbilical hernia Rotator cuff arthropathy of left shoulder Depression Acid reflux Diabetes Arthritis Low back pain Surgical History Previous back surgery Family History Father High blood pressure Mother Cancer Social History Housing: Apartment Patient Tobacco Use Status: Former Tobacco user e-Cigarette/Vaping Use: Never Used service: No Current occupational status: retired Cognitive needs: No Hearing needs: No Vision needs: No Questionnaire Thrive Questionnaire Date Thrive assessed: 08/17/23 ISAAC-7 AMB Questionnaire ISAAC-7 Date ISAAC - 7 assessed: 08/17/23 Source: Developed by Drs. Logan Montgomery, Eri Sylvester, Jorge Michaels and colleagues, with an educational urmila from [employer]. Review of Systems Const Details: Const Denies chills, Denies fatigue, Denies fever(s), Denies headache(s) and Denies weakness ENT Denies dizziness and Denies headache(s) Card Denies chest pain, Denies lightheadedness, Denies dyspnea and Denies other (Palpitations) Resp Denies cough, Denies dyspnea, Denies wheezing and Denies other ( shortness of breath) GI Denies abdominal pain, Denies melena, Denies hematochezia, Denies change in bowel habits, Denies dyspepsia and Denies nausea Denies hematuria and Denies dysuria Musc Denies abnormal gait, Denies myalgias, Denies arthralgias, Denies numbness and Denies tingling Skin/Breast Denies rash, Denies unusual bruising and Denies wounds Neuro Denies abnormal gait, Denies dizziness, Denies headache(s), Denies memory loss, Denies numbness, Denies Sensory deficit (Neuro), Denies tingling and Denies weakness Psych Denies anxiety, Denies depression, Denies memory loss Endo Denies cold intolerance, Denies fatigue, Denies heat intolerance, Denies polydipsia and Denies polyuria Aller/Immun Denies wheezing Physical exam (Primary Care) Vital Signs: Last Vital Signs Temp 97.5 F 09/18/23 12:07 Pulse 70 09/18/23 12:07 Resp 12 09/18/23 12:07 BP 130/74 09/18/23 12:07 Pulse Ox 94 09/18/23 12:07 Oxygen Delivery Method Room Air 09/18/23 12:07 BMI result Body Mass Index 31.3 Tobacco/Smoking Status: Tobacco use Status Tobacco use date assessed 08/17/23 09/18/23 12:04 Patient Tobacco Use Status Former Tobacco user 09/18/23 12:04 e-Cigarette/Vaping Use Never Used 09/18/23 12:04 Thrive Assessment: Date of Thrive Assessment Date Thrive assessed 08/17/23 09/18/23 12:04 Const Other: General: no acute distress and well developed Nutritional Appearance: well nourished Orientation/consciousness: patient oriented x3 HENMT Head: Yes normocephalic and Yes atraumatic Eyes General: appearance normal, both eyes and all related structures Pupils: Equal, round and reactive pupils present EOM: EOMs intact bilaterally Resp Effort & Inspection: normal respiratory effort Auscultation: clear to auscultation bilaterally Cardio Rate: regular rate Rhythm: regular rhythm Heart sounds: S1 normal heart sound present, S2 normal heart sound present, no gallops, no murmurs and no rubs GI Palpation (GI): No Abdominal aortic bruit present, Soft to palpation, nontender, No hepatosplenomegaly present and No Rebound tenderness present Auscultation: normal bowel sounds General: Yes no CVA tenderness Back/Spine/Pelvis Back: no CVA tenderness Cervical Spine: cervical ROM normal and No Cervical spine tenderness Thoracic/Lumbar Spine: thoraco-lumbar ROM normal, No pain with thoraco-lumbar ROM, No thoracic spinal tenderness and No lumbar spinal tenderness Extrem General: Yes normal to inspection, No edema and No calf tenderness Skin General: warm and dry. Normal skin color. Normal skin turgor Neuro General: patient oriented x3, gait normal and no focal neuro deficit Cranial nerves: Yes Equal, round and reactive pupils present Cognition (Neuro): normal cognition Gait exam (Neuro): Normal gait present Sensory Exam: No Sensory deficit (Neuro) Psych Appearance: grossly normal Affect: normal affect Attitude: cooperative Thought process: Normal thought process present Results AMB Hemoglobin A1c AMB Hemoglobin A1c 6.8 % Last Edit by Gaviota Green on 09/18/23 12:32 Assessment and Plan Assessment & Plan (1) Diabetes: Code(s): E11.9 - Type 2 diabetes mellitus without complications Plan: A1c today 6.8%, within goal of less than 7.0%. Previous A1c was 7.0% Continue current treatment regimen ADA diet and routine exercise encouraged Follow-up in 3 months for diabetes and hypertension or sooner with symptoms or concerns Verbalized understanding and agreed with the treatment plan (2) Hypertension: Code(s): I10 - Essential (primary) hypertension Qualifiers: Hypertension type: primary hypertension Qualified Code(s): I10 - Essential (primary) hypertension Plan: Blood pressure is 130/74, slightly above goal of less than 130/80 Continue current treatment regimen Low-sodium diet encouraged Follow-up in 3 months Verbalized understanding and agreed with treatment plan (3) Cough: Code(s): R05.9 - Cough, unspecified Plan: Productive cough with associated runny nose and sneezing Likely allergies Zyrtec ordered. Advised to take as prescribed. Instructed on the risks, benefits, and potential adverse reactions of the medication Adequate hydration and rest encouraged Follow-up with worsening or new symptoms Verbalized understanding and agreed with treatment plan Orders: Orders AMB Hemoglobin A1c Today Z13.9 - Encounter for screening, unspecified Medications: New cetirizine (Zyrtec) 10 mg PO DAILY 30 days 30 tabs 0RF Coding Level of Care Code Est Pt Level 4 (42188) Complex EM visit Add On G2211 Diagnoses Diabetes E11.9 Primary hypertension I10 Hypertension type: primary hypertension Cough R05.9
[2023-09-18 12:07] VITALS: BP 130/74; PULSE 70; RESP 12; TEMP 36.4; O2SAT 94; BMI 31.3
== END 2023-09-18 12:38 | disposition home or self-care (01) ==
PROVIDERS: PCP Nurse Practitioner Family; Visit Provider Nurse Practitioner Family
DX: E11.9 Type 2 diabetes mellitus without complications (principal); I10 Essential (primary) hypertension; R05.9 Cough, unspecified
CPT/HCPCS: 83036; 99214; G2211

== ENCOUNTER 2023-12-25 11:04 | Outpatient (AMB) | payer OTHER, SELFPAY ==
--- NOTE | 2023-12-25 11:05 | MHC.PC.OV ---
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 Required: No Allergies No Known Allergies Allergy (Verified 12/25/23 11:27) Medication List - Last Reconciled 12/25/23 by Keven Traore CNP amlodipine 10 mg PO DAILY 90 days atorvastatin 40 mg PO DAILY 30 days blood pressure test kit-medium As directed chlorthalidone 25 mg PO DAILY 30 days citalopram 40 mg PO DAILY 30 days glipizide 5 mg PO DAILY losartan 50 mg PO DAILY 30 days metformin 500 mg PO BID 30 days metoprolol succinate ER 50 mg PO DAILY 30 days omeprazole 20 mg PO DAILY 90 days tamsulosin 0.4 mg PO DAILY 90 days Tobacco use date assessed: 12/25/23 Fall risk assessment: No Falls in past year Last assessed Fall Risk: 12/25/23 Dental Screening Dental Screen Date: 12/25/23 Did you have a dental visit in the last 12 months?: No Did you have a dental problem in the last 6 months where you did not have access to dental care?: No Was dental information given to patient?: Yes HPI HPI Comments History of Present Illness Details 73-year-old male presents for hypertension and diabetes follow-up He admits to taking his medications as prescribed without adverse reactions He notes intermittent dull pain to his left flank for the past 2 weeks. He notes weak urine stream in the morning which is baseline. He denies urinary frequency, urgency, dysuria, or bloody urine. No urinary discharge. No fall, injury or trauma. He experienced chills, diaphoresis, and fatigue for two days last week but those symptoms completely subsided. No acute symptoms at this time [facility] Medical History Overweight Umbilical hernia Rotator cuff arthropathy of left shoulder Depression Acid reflux Diabetes Arthritis Low back pain Surgical History Previous back surgery Family History Father High blood pressure Mother Cancer Social History Housing: Apartment Patient Tobacco Use Status: Former Tobacco user e-Cigarette/Vaping Use: Never Used service: No Current occupational status: retired Cognitive needs: No Hearing needs: No Vision needs: No Questionnaire PHQ-9 Over the last 2 weeks, how often have you been bothered by any of the following problems? 1. Little interest or pleasure in doing things: not at all 2. Feeling down, depressed, or hopeless: not at all 3. Trouble falling or staying asleep, or sleeping too much: not at all 4. Feeling tired or having little energy: several days 5. Poor appetite or overeating: not at all 6. Feeling bad about yourself - or that you are a failure or have let yourself or your family down: not at all 7. Trouble concentrating on things, such as reading the newspaper or watching television: not at all 8. Moving or speaking so slowly that other people could have noticed. Or the opposite - being so fidgety or restless that you have been moving around a lot more than usual: not at all 9. Thoughts that you would be better off or of hurting yourself in some way: not at all Total score: 1 98808 - PHQ-9 Billing: Yes Source: Developed by Drs. Logan Montgomery, Eri Sylvester, Jorge Michaels and colleagues, with an educational urimla from [employer]. Thrive Questionnaire Date Thrive assessed: 12/25/23 I am a: Patient What is your living situation today?: I have a steady place to live Within the past 12 months, did the food you bought not last and you didn't have the money to get more?: Never true Within the past 12 months, did you worry whether your food would run out before you got money to buy more?: Never true Do you have trouble paying for medicines?: No Do you have trouble getting transportation to medical appointments?: No Do you have trouble paying your heating and electricity bill?: No Do you have trouble taking care of your child, family member or friend?: No Do you have trouble with day-to-day activities such as bathing, preparing meals, shopping, managing finances, etc.?: No Are you currently unemployed and looking for a job?: No Are you interested in more education?: No Please select the resources that you would like help with: None Currently or been in a relationship where the following occur: I choose not to answer THRIVE Score: 0 AUDIT C Alcohol Use Questionnaire (AUDIT-C) 1. How often do you have a drink containing alcohol?: Never Total Score: 0 ISAAC-7 AMB Questionnaire ISAAC-7 Date ISAAC - 7 assessed: 12/25/23 Feeling nervous, anxious, or on edge: 0 = Not at all Not being able to stop or control worryin = Not at all Worrying too much about different things: 0 = Not at all Trouble relaxin = Not at all Being so restless that it is hard to sit still: 0 = Not at all Becoming easily annoyed or irritable: 0 = Not at all Feeling afraid as if something awful might happen: 0 = Not at all Total ISAAC-7 score (0-4 normal; 5-9 mild; 10-14 moderate; 15-21 severe): 0 Source: Developed by Drs. Logan Montgomery, Eri Sylvester, Jorge Michaels and colleagues, with an educational urmila from [employer]. ISAAC-7 Assessment Billing ISAAC-7 Assessment Tool: ISAAC-7 Assessment 58239 Review of Systems Const Details: Const Denies chills, Denies fatigue, Denies fever(s), Denies headache(s) and Denies weakness ENT Denies dizziness and Denies headache(s) Card Denies chest pain, Denies lightheadedness, Denies dyspnea and Denies other (Palpitations) Resp Denies cough, Denies dyspnea, Denies wheezing and Denies other ( shortness of breath) GI Denies abdominal pain, Denies melena, Denies hematochezia, Denies change in bowel habits, Denies dyspepsia and Denies nausea Denies hematuria and Denies dysuria Musc Denies abnormal gait, Denies myalgias, Denies arthralgias, Denies numbness and Denies tingling Skin/Breast Denies rash, Denies unusual bruising and Denies wounds Neuro Denies abnormal gait, Denies dizziness, Denies headache(s), Denies memory loss, Denies numbness, Denies Sensory deficit (Neuro), Denies tingling and Denies weakness Psych Denies anxiety, Denies depression, Denies memory loss Endo Denies cold intolerance, Denies fatigue, Denies heat intolerance, Denies polydipsia and Denies polyuria Aller/Immun Denies wheezing Physical exam (Primary Care) Vital Signs: Last Vital Signs Temp 97.6 F 12/25/23 11:15 Pulse 70 12/25/23 11:15 Resp 16 12/25/23 11:15 BP 118/64 12/25/23 11:31 Pulse Ox 95 12/25/23 11:15 Oxygen Delivery Method Room Air 12/25/23 11:15 BMI result Body Mass Index 31.2 Tobacco/Smoking Status: Tobacco use Status Tobacco use date assessed 12/25/23 12/25/23 11:14 Patient Tobacco Use Status Former Tobacco user 12/25/23 11:06 e-Cigarette/Vaping Use Never Used 12/25/23 11:06 PHQ-9: PHQ-9 Score PHQ-9: Total score 1 12/25/23 11:27 Thrive Assessment: Date of Thrive Assessment Date Thrive assessed 12/25/23 12/25/23 11:14 Currently or been in a relationship where the following occur: I choose not to answer Const Other: General: no acute distress and well developed Nutritional Appearance: well nourished Orientation/consciousness: patient oriented x3 HENMT Head: Yes normocephalic and Yes atraumatic Eyes General: appearance normal, both eyes and all related structures Pupils: Equal, round and reactive pupils present EOM: EOMs intact bilaterally Resp Effort & Inspection: normal respiratory effort Auscultation: clear to auscultation bilaterally Cardio Rate: regular rate Rhythm: regular rhythm Heart sounds: S1 normal heart sound present, S2 normal heart sound present, no gallops, no murmurs and no rubs GI Palpation (GI): No Abdominal aortic bruit present, Soft to palpation, nontender, No hepatosplenomegaly present and No Rebound tenderness present Auscultation: normal bowel sounds General: Yes no CVA tenderness Back/Spine/Pelvis Back: no CVA tenderness Cervical Spine: cervical ROM normal and No Cervical spine tenderness Thoracic/Lumbar Spine: thoraco-lumbar ROM normal, No pain with thoraco-lumbar ROM, No thoracic spinal tenderness and No lumbar spinal tenderness Extrem General: Yes normal to inspection, No edema and No calf tenderness Skin General: warm and dry. Normal skin color. Normal skin turgor Lesions: no lesions Rashes: no rashes Trauma: no lacerations or abrasions Wounds: no wounds Nails: normal Neuro General: patient oriented x3, gait normal and no focal neuro deficit Cranial nerves: Yes Equal, round and reactive pupils present Cognition (Neuro): normal cognition Gait exam (Neuro): Normal gait present Sensory Exam: No Sensory deficit (Neuro) Psych Appearance: grossly normal Affect: normal affect Attitude: cooperative Thought process: Normal thought process present Results AMB Hemoglobin A1c AMB Hemoglobin A1c 6.1 % Last Edit by Gaviota Green MA on 12/25/23 11:37 Results Reviewed Results Reviewed: Laboratory Last Values Hgb A1c (Clinic) 6.1 % (4.0-6.0) H 12/25/23 11:27 Coding Level of Care Code Est Pt Level 3 (46752) Diagnoses Primary hypertension I10 Hypertension type: primary hypertension Diabetes E11.9 Left flank pain R10.9 Weak urine stream R39.12 Additional Codes ISAAC-7 Assessment Billing - ISAAC-7 Assessment Tool: ISAAC-7 Assessment 08901 ([id number]) Assessment & Plan Assessment & Plan (1) Hypertension: Code(s): I10 - Essential (primary) hypertension Category: Medical Qualifiers: Hypertension type: primary hypertension Qualified Code(s): I10 - Essential (primary) hypertension Plan: Resting blood pressure is 118/64, within goal of less than 140/90 Continue current treatment regimen Low sodium diet encouraged Follow up in 3 months Verbalized understanding and agreed with the plan (2) Diabetes: Code(s): E11.9 - Type 2 diabetes mellitus without complications Category: Medical Plan: A1c today 6.1%, within goal of less than 7.0%. Previous A1c was 6.8% Continue current treatment regimen ADA diet and routine exercise encouraged Follow-up in 3 months Verbalized understanding and agreed with the treatment plan (3) Left flank pain: Code(s): R10.9 - Unspecified abdominal pain Category: Medical Plan: Reports intermittent dull pain to his left flank. His urine stream is weak in the morning at baseline. No urinary frequent, hesitancy, dysuria, or hematuria. No discharge with urination. No fall, injury, or trauma No CVA tenderness Will check BMP and urinalysis/culture and make changes as needed. Will order KUB if those labs normal Follow-up with worsening or new symptoms Verbalized understanding and agreed with treatment plan (4) Weak urine stream: Code(s): R39.12 - Poor urinary stream Category: Medical Plan: His recent PSA is on the high end of normal, 3.99. Will recheck a PSA levels and make changes as needed. May referred to Urology Orders: Orders AMB Hemoglobin A1c Today Z13.9 - Encounter for screening, unspecified Basic Metabolic Panel Today R10.9 - Unspecified abdominal pain PSA, Ultra Sensitive Today R39.12 - Poor urinary stream UA CC w/rflx Micro + Cult Today R10.9 - Unspecified abdominal pain Medications: Changed From glipizide 5 mg PO DAILY To glipizide 5 mg PO DAILY 30 tabs 3RF 30 days
[2023-12-25 11:15] VITALS: BP 132/72; PULSE 70; RESP 16; TEMP 36.4; O2SAT 95; BMI 31.2
[2023-12-25 11:31] VITALS: BP 118/64
== END 2023-12-25 11:41 | disposition home or self-care (01) ==
PROVIDERS: PCP Nurse Practitioner Family; Visit Provider Nurse Practitioner Family
DX: I10 Essential (primary) hypertension (principal); E11.9 Type 2 diabetes mellitus without complications; R10.9 Unspecified abdominal pain; R39.12 Poor urinary stream; Z13.9 Encounter for screening, unspecified

== ENCOUNTER → 2023-12-25 11:04 | Outpatient (BNVA) | payer OTHER, SELFPAY | PROVIDERS: PCP Nurse Practitioner Family; Visit Provider Nurse Practitioner Family | DX: I10 Essential (primary) hypertension (principal); E11.9 Type 2 diabetes mellitus without complications; R10.9 Unspecified abdominal pain; R39.12 Poor urinary stream | CPT/HCPCS: 83036; 96127 ==

== ENCOUNTER 2023-12-25 11:55 | Outpatient (REF) | payer OTHER, SELFPAY ==
[2023-12-25 14:45] LABS: Anion Gap 9 (12-20); Blood Urea Nitrogen 20 mg/dL (9-16); Calcium 9.7 mg/dL (8.4-10.2); Carbon Dioxide 30 mmol/L (22-29); Chloride 105 mmol/L (96-108); Estimated Glomerular Filt Rate 56; Glucose Random 118 mg/dL (60-115); Potassium 3.7 mmol/L (3.3-5.1); Sodium 140 mmol/L (135-145)
[2023-12-25 14:49] LABS: Appearance Urine Clear; Color Urine Yellow; Glucose Urine UA Negative (Negative); Leukocyte Esterase Urine Negative (Negative); Nitrite Urine Negative (Negative); PH 7.5 (5.0-9.0); Specific Gravity - Urine 1.025 (1.005-1.025); Urine Blood Negative (Negative); Urine Ketones Negative (Negative); Urine Protein Trace mg/dL (Neg-Trace)
[2024-01-02 23:48] LABS: PSA, Ultra Sensitive 4.04 ng/mL
== END 2023-12-25 11:56 | disposition home or self-care (01) ==
LOC: HO.WFDLDS 11:55
PROVIDERS: Visit Provider Nurse Practitioner Family
DX: Z12.5 Encounter for screening for malignant neoplasm of prostate (principal); R10.9 Unspecified abdominal pain; R39.12 Poor urinary stream
CPT/HCPCS: 36415; 80048; 81003; 84153

== ENCOUNTER 2024-02-26 08:45 | Outpatient (AMB) | payer OTHER, SELFPAY ==
--- NOTE | 2024-02-26 08:47 | A.OFFVIS_ITS ---
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 He is a patient of . He is seen fo r the following urologic conditions - elevated PSA Elevated PSA PSA 12/26 4.1 Nocturia times 2-3 slowly progressive Adequate stream Effective emptying KATHARINA 1+ Follow-up six-month PSA with bladder ultrasound PFSH Medical History Overweight Umbilical hernia Rotator cuff arthropathy of left shoulder Depression Acid reflux Diabetes Arthritis Low back pain Surgical History Previous back surgery Family History Father High blood pressure Mother Cancer Social History Housing: Apartment Patient Tobacco Use Status: Former Tobacco user e-Cigarette/Vaping Use: Never Used service: No Current occupational status: retired Cognitive needs: No Hearing needs: No Vision needs: No Review of Systems Const Denies chills and Denies fever(s) Card Reports no additional complaints and Denies syncope Resp Denies cough GI Denies abdominal pain and Denies heartburn Reports as per HPI and Denies change in libido Neuro Denies syncope Psych Denies change in libido Endo Denies change in libido Physical Exam Const General: cooperative, healthy appearing, comfortable and no acute distress Orientation/consciousness: patient oriented x3 HEENT Face and sinus: Yes normal facial exam Mouth: moist mucous membranes Neck Neck: Yes normal visual inspection, Yes full ROM and Yes trachea midline Chest Chest palpation & inspection: normal inspection of the chest Resp Effort & Inspection: normal respiratory effort, able to speak in complete sentences and no respiratory distress GI Inspection: Yes normal to inspection Rectal Exam - Male: Yes normal sphincter tone and Yes prostate normal Male General Exam: Yes normal external exam Penis: normal penis and circumcised Meatus: meatus normal Scrotum: scrotum normal Testes: Testes normal Back/Spine/Pelvis Cervical Spine: normal cervical lordosis Thoracic/Lumbar Spine: thoracic and lumbar spine normal to inspection Skin General skin exam: no rashes or lesions noted Neuro General: patient oriented x3, gait normal, tone normal and moves all extremities Extrem General: Yes normal to inspection and Yes capillary refill normal Results AMB Urinalysis, Automated UA Leukoctes 0 Helen/uL Last Edit by JYOTI Roman on 02/26/24 09:02 UA Nitrite Negative Last Edit by JYOTI Roman on 02/26/24 09:02 UA Urobilinogen 0.2 mg/dL Last Edit by JYOTI Roman on 02/26/24 09:0 2 UA Protein 15 mg/dL Last Edit by JYOTI Roman on 02/26/24 09:02 UA pH 6.0 Last Edit by JYOTI Roman on 02/26/24 09:02 UA Blood 0 Joce/uL Last Edit by JYOTI Roman on 02/26/24 09:02 UA Specific Turrell 1.020 Last Edit by JYOTI Roman on 02/26/24 09: 02 UA Ketone Negative Last Edit by JYOTI Roman on 02/26/24 09:02 UA Bilirubin 0 mg/dL Last Edit by JYOTI Roman on 02/26/24 09:02 UA Glucose 0 mg/dL Last Edit by JYOTI Roman on 02/26/24 09:02 Assessment & Plan Assessment & Plan (1) Elevated PSA: Code(s): R97.20 - Elevated prostate specific antigen [PSA] Category: Medical (2) Weak urine stream: Code(s): R39.12 - Poor urinary stream Category: Medical Plan Six-month follow-up office nurse-practitioner Orders: Orders PSA,Total (Free>4and<10) 6 Months R97.20 - Elevated prostate specific antigen [PSA] US bladder 6 Months R39.12 - Poor urinary stream, R97.20 - Elevated prostate specific antigen [PSA] AMB Urinalysis Automated Today Z13.9 - Encounter for screening, unspecified Patient Instructions: Imaging studies, laboratory and physical exam results were discussed and reviewed in detail. No major barriers to patient understanding were identified. An opportunity to ask questions regarding the treatment plan was provided. All questions were answered. The patient expressed understanding and agreement with the above treatment plan. The patient is aware they should contact our office by phone for worsening of their current condition or the appearance of new urologic symptoms. Compliance is encouraged with any medications and followup testing that is ordered. It is a privilege to participate in the urologic care of your patient. If you have any questions or concerns regarding treatment for the above conditions, or other urologic issues, please do not hesitate to contact me. The office telephone contact is [phone]. This note is constructed using voice recognition software. While every effort has been made to ensure accuracy manager of internal audit errors may have been included. Yours sincerely, Dr Sulaiman Hernandes MD, [facility] - Urology Providers of Expert, Compassionate Care for the Genitourinary System Coding Level of Care Code New Pt Level 3 (28978) Diagnoses Elevated PSA R97.20 Weak urine stream R39.12
== END 2024-02-26 09:14 | disposition home or self-care (01) ==
PROVIDERS: PCP Nurse Practitioner Family; Visit Provider Urology
DX: R97.20 Elevated prostate specific antigen [PSA] (principal); R39.12 Poor urinary stream; Z13.9 Encounter for screening, unspecified
CPT/HCPCS: 99203

== ENCOUNTER 2024-04-25 12:46 | Outpatient (AMB) | payer MEDICARE, SELFPAY ==
--- NOTE | 2024-04-25 12:49 | MHC.PC.OV ---
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 Allergies No Known Allergies Allergy (Verified 04/25/24 13:21) Medication List - Last Reconciled 04/25/24 by Keven Traore CNP amlodipine 10 mg PO DAILY 90 days atorvastatin 40 mg PO DAILY blood pressure test kit-medium As directed chlorthalidone 25 mg PO DAILY 90 days citalopram 40 mg PO DAILY 90 days glipizide 5 mg PO DAILY 30 days losartan 50 mg PO DAILY 30 days metformin 500 mg PO BID 30 days metoprolol succinate ER 50 mg PO DAILY 90 days omeprazole 20 mg PO DAILY 90 days tamsulosin 0.4 mg PO DAILY 90 days Tobacco use date assessed: 04/25/24 Fall risk assessment: No Falls in past year Last assessed Fall Risk: 04/25/24 Dental Screening Dental Screen Date: 04/25/24 Did you have a dental visit in the last 12 months?: No Did you have a dental problem in the last 6 months where you did not have access to dental care?: No Was dental information given to patient?: Patient declined HPI HPI Comments History of Present Illness Details 73-year-old male presents for hypertension and diabetes follow-up. He admits to taking his medications as prescribed without adverse reactions. He has been making healthy dietary choices, including low carb and salt. He exercises routinely. He reports controlled depressive symptoms. He generally sleeps well. His resting blood pressure is 104/50. He admits to episodes of dizziness daily. [facility] Medical History (Updated 04/25/24 @ 13:39 by Keven Traore CNP) Overweight Umbilical hernia Rotator cuff arthropathy of left shoulder Depression Acid reflux Diabetes Arthritis Low back pain Surgical History Previous back surgery Family History Father High blood pressure Mother Cancer Social History Housing: Apartment Patient Tobacco Use Status: Former Tobacco user e-Cigarette/Vaping Use: Never Used service: No Current occupational status: retired Cognitive needs: No Hearing needs: No Vision needs: No Questionnaire PHQ-9 Over the last 2 weeks, how often have you been bothered by any of the following problems? 1. Little interest or pleasure in doing things: not at all 2. Feeling down, depressed, or hopeless: not at all 3. Trouble falling or staying asleep, or sleeping too much: not at all 4. Feeling tired or having little energy: not at all 5. Poor appetite or overeating: not at all 6. Feeling bad about yourself - or that you are a failure or have let yourself or your family down: not at all 7. Trouble concentrating on things, such as reading the newspaper or watching television: not at all 8. Moving or speaking so slowly that other people could have noticed. Or the opposite - being so fidgety or restless that you have been moving around a lot more than usual: not at all 9. Thoughts that you would be better off or of hurting yourself in some way: not at all Total score: 0 Depression Screening Interpretation: Negative Depression Screening Done: Yes 08848 - PHQ-9 Billing: Yes Source: Developed by Drs. Logan Montgomery, Eri Sylvester, Jorge Michaels and colleagues, with an educational urmila from [employer]. Thrive Questionnaire Date Thrive assessed: 04/25/24 I am a: Patient What is your living situation today?: I have a steady place to live Within the past 12 months, did the food you bought not last and you didn't have the money to get more?: Never true Within the past 12 months, did you worry whether your food would run out before you got money to buy more?: Never true Do you have trouble paying for medicines?: No Do you have trouble getting transportation to medical appointments?: No Do you have trouble paying your heating and electricity bill?: No Do you have trouble taking care of your child, family member or friend?: No Do you have trouble with day-to-day activities such as bathing, preparing meals, shopping, managing finances, etc.?: No Are you currently unemployed and looking for a job?: No Are you interested in more education?: No Please select the resources that you would like help with: None Currently or been in a relationship where the following occur: No concerns reported THRIVE Score: 0 AUDIT C Alcohol Use Questionnaire (AUDIT-C) 1. How often do you have a drink containing alcohol?: Monthly or less 2. How many drinks containing alcohol do you have on a typical day when you are drinking?: 1 or 2 3. How often do you have six or more drinks on one occasion?: Never Total Score: 1 ISAAC-7 AMB Questionnaire ISAAC-7 Date ISAAC - 7 assessed: 04/25/24 Feeling nervous, anxious, or on edge: 0 = Not at all Not being able to stop or control worryin = Not at all Worrying too much about different things: 0 = Not at all Trouble relaxin = Not at all Being so restless that it is hard to sit still: 0 = Not at all Becoming easily annoyed or irritable: 0 = Not at all Feeling afraid as if something awful might happen: 0 = Not at all Total ISAAC-7 score (0-4 normal; 5-9 mild; 10-14 moderate; 15-21 severe): 0 Source: Developed by Drs. Logan Montgomery, Eri Sylvester, Jorge Michaels and colleagues, with an educational urmila from [employer]. ISAAC-7 Assessment Billing ISAAC-7 Assessment Tool: ISAAC-7 Assessment 61155 Review of Systems Const Details: Const Denies chills, Denies fatigue, Denies fever(s), Denies headache(s) and Denies weakness ENT Reports dizziness and Denies headache(s) Card Denies chest pain, Denies lightheadedness, Denies dyspnea and Denies other (Palpitations) Resp Denies cough, Denies dyspnea, Denies wheezing and Denies other ( shortness of breath) GI Denies abdominal pain, Denies melena, Denies hematochezia, Denies change in bowel habits, Denies dyspepsia and Denies nausea Denies hematuria and Denies dysuria Musc Denies abnormal gait, Denies myalgias, Denies arthralgias, Denies numbness and Denies tingling Skin/Breast Denies rash, Denies unusual bruising and Denies wounds Neuro Denies abnormal gait, Reports dizziness, Denies headache(s), Denies memory loss, Denies numbness, Denies Sensory deficit (Neuro), Denies tingling and Denies weakness Psych Denies anxiety, Denies depression, Denies memory loss Endo Denies cold intolerance, Denies fatigue, Denies heat intolerance, Denies polydipsia and Denies polyuria Aller/Immun Denies wheezing Physical exam (Primary Care) Vital Signs: Last Vital Signs Temp 97.8 F 04/25/24 12:56 Pulse 72 04/25/24 12:56 Resp 16 04/25/24 12:56 BP 116/56 L 04/25/24 12:56 Pulse Ox 95 04/25/24 12:56 Oxygen Delivery Method Room Air 04/25/24 12:56 BMI result Body Mass Index 31.8 Tobacco/Smoking Status: Tobacco use Status Tobacco use date assessed 04/25/24 04/25/24 13:02 Patient Tobacco Use Status Former Tobacco user 04/25/24 12:50 e-Cigarette/Vaping Use Never Used 04/25/24 12:50 PHQ-9: PHQ-9 Score PHQ-9: Total score 0 04/25/24 13:02 Depression Screening Interpretation: Negative Thrive Assessment: Date of Thrive Assessment Date Thrive assessed 04/25/24 04/25/24 12:50 Currently or been in a relationship where the following occur: No concerns reported Const Other: General: no acute distress and well developed Nutritional Appearance: well nourished Orientation/consciousness: patient oriented x3 HENMT Head: Yes normocephalic and Yes atraumatic Eyes General: appearance normal, both eyes and all related structures Pupils: Equal, round and reactive pupils present EOM: EOMs intact bilaterally Resp Effort & Inspection: normal respiratory effort Auscultation: clear to auscultation bilaterally Cardio Rate: regular rate Rhythm: regular rhythm Heart sounds: S1 normal heart sound present, S2 normal heart sound present, no gallops, no murmurs and no rubs GI Palpation (GI): No Abdominal aortic bruit present, Soft to palpation, nontender, No hepatosplenomegaly present and No Rebound tenderness present Auscultation: normal bowel sounds General: Yes no CVA tenderness Back/Spine/Pelvis Back: no CVA tenderness Cervical Spine: cervical ROM normal and No Cervical spine tenderness Thoracic/Lumbar Spine: thoraco-lumbar ROM normal, No pain with thoraco-lumbar ROM, No thoracic spinal tenderness and No lumbar spinal tenderness Extrem General: Yes normal to inspection, No edema and No calf tenderness Skin General: warm and dry. Normal skin color. Normal skin turgor Lesions: no lesions Rashes: no rashes Trauma: no lacerations or abrasions Wounds: no wounds Nails: normal Neuro General: patient oriented x3, gait normal and no focal neuro deficit Cranial nerves: Yes Equal, round and reactive pupils present Cognition (Neuro): normal cognition Gait exam (Neuro): Normal gait present Sensory Exam: No Sensory deficit (Neuro) Psych Appearance: grossly normal Affect: normal affect Attitude: cooperative Thought process: Normal thought process present Results AMB Hemoglobin A1c AMB Hemoglobin A1c 6.6 % Last Edit by Gaviota Green on 04/25/24 13:31 Coding Level of Care Code Est Pt Level 3 (65939) Diagnoses Primary hypertension I10 Hypertension type: primary hypertension Diabetes E11.9 Depression F32.A Additional Codes ISAAC-7 Assessment Billing - ISAAC-7 Assessment Tool: ISAAC-7 Assessment 49385 ([id number]) PHQ-9 - 74294 - PHQ-9 Billing: Yes ([id number]) Assessment & Plan Assessment & Plan (1) Hypertension: Code(s): I10 - Essential (primary) hypertension Category: Medical Qualifiers: Hypertension type: primary hypertension Qualified Code(s): I10 - Essential (primary) hypertension Plan: Resting blood pressure is 104/50. He has been experiencing episodes of dizziness daily. Will discontinue metoprolol succinate 50 mg daily at this time. Continue to take losartan 50 mg daily and amlodipine 10 mg daily. Continue to maintain low-sodium diet. Advised to monitor blood pressure and report readings consistently below 100/60. Also reports persistent dizziness. Follow-up in 1 month or sooner with symptoms or concerns. Verbalized understanding and agreed with treatment plan. (2) Diabetes: Code(s): E11.9 - Type 2 diabetes mellitus without complications Category: Medical Plan: A1c today 6.6%, within goal of less than 7.0%. Continue to take metformin and glipizide as prescribed. ADA diet and routine exercise encouraged. Will recheck A1c in 3 months. Verbalized understanding and agreed with treatment plan. (3) Depression: Code(s): F32.A - Depression, unspecified Category: Medical Plan: Controlled depressive symptoms. He generally sleeps well. Continue to take citalopram 40 mg daily. Routine exercise encouraged. Follow-up with symptoms or concerns. Verbalized understanding and agreed with treatment plan. Orders: Orders AMB Hemoglobin A1c Today Z13.9 - Encounter for screening, unspecified Medications: Discontinued metoprolol succinate ER Discontinued Reason: Doctor's Order 50 mg PO DAILY 90 days 90 tabs 0RF
[2024-04-25 12:56] VITALS: BP 116/56; PULSE 72; RESP 16; TEMP 36.6; O2SAT 95; BMI 31.8
[2024-04-25 13:29] VITALS: BP 104/50; PULSE 64
== END 2024-04-25 13:35 | disposition home or self-care (01) ==
PROVIDERS: PCP Nurse Practitioner Family; Visit Provider Nurse Practitioner Family
DX: I10 Essential (primary) hypertension (principal); E11.9 Type 2 diabetes mellitus without complications; F32.A Depression, unspecified; Z13.9 Encounter for screening, unspecified

== ENCOUNTER → 2024-04-25 12:46 | Outpatient (BNVA) | payer MEDICARE, SELFPAY | PROVIDERS: PCP Nurse Practitioner Family; Visit Provider Nurse Practitioner Family | DX: I10 Essential (primary) hypertension (principal); E11.9 Type 2 diabetes mellitus without complications; F32.A Depression, unspecified | CPT/HCPCS: 83036; 96127; 99212 ==

== ENCOUNTER 2024-05-26 12:33 | Outpatient (AMB) | payer MEDICARE, SELFPAY ==
--- NOTE | 2024-05-26 12:35 | MHC.PC.OV ---
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 Allergies No Known Allergies Allergy (Verified 05/26/24 12:49) Medication List - Last Reconciled 05/26/24 by Keven Traore CNP amlodipine 10 mg PO DAILY 90 days atorvastatin 40 mg PO DAILY blood pressure test kit-medium As directed chlorthalidone 25 mg PO DAILY 90 days citalopram 40 mg PO DAILY 90 days glipizide 5 mg PO DAILY 30 days losartan 50 mg PO DAILY 30 days metformin 500 mg PO BID 30 days omeprazole 20 mg PO DAILY 90 days tamsulosin 0.4 mg PO DAILY 90 days Tobacco use date assessed: 05/26/24 Fall risk assessment: No Falls in past year Last assessed Fall Risk: 05/26/24 Dental Screening Dental Screen Date: 05/26/24 Did you have a dental visit in the last 12 months?: No Did you have a dental problem in the last 6 months where you did not have access to dental care?: No Was dental information given to patient?: Patient declined HPI HPI Comments History of Present Illness Details 73-year-old male presents for hypertension follow-up. He admits to taking his medications as prescribed without adverse reactions. He has been making healthy dietary choices, including low carb and salt. He has not experienced dizziness since metoprolol was discontinue at his last visit. He no longer regularly monitors his blood pressure. Last time he checked his blood pressure was two weeks ago. He offers no complaints and denies acute symptoms at this time. [facility] Medical History (Updated 04/25/24 @ 13:39 by Keven Traore CNP) Overweight Umbilical hernia Rotator cuff arthropathy of left shoulder Depression Acid reflux Diabetes Arthritis Low back pain Surgical History Previous back surgery Family History Father High blood pressure Mother Cancer Social History Housing: Apartment Patient Tobacco Use Status: Former Tobacco user e-Cigarette/Vaping Use: Never Used service: No Current occupational status: retired Cognitive needs: No Hearing needs: No Vision needs: No Questionnaire Thrive Questionnaire Date Thrive assessed: 04/25/24 Within the past 12 months, did you worry whether your food would run out before you got money to buy more?: Never true Do you have trouble paying for medicines?: No Do you have trouble getting transportation to medical appointments?: No Do you have trouble paying your heating and electricity bill?: No Do you have trouble taking care of your child, family member or friend?: No Do you have trouble with day-to-day activities such as bathing, preparing meals, shopping, managing finances, etc.?: No Are you currently unemployed and looking for a job?: No Are you interested in more education?: No Please select the resources that you would like help with: None Currently or been in a relationship where the following occur: No concerns reported THRIVE Score: 0 AUDIT C Alcohol Use Questionnaire (AUDIT-C) 1. How often do you have a drink containing alcohol?: Never Total Score: 0 ISAAC-7 AMB Questionnaire ISAAC-7 Date ISAAC - 7 assessed: 04/25/24 Feeling nervous, anxious, or on edge: 0 = Not at all Not being able to stop or control worryin = Not at all Worrying too much about different things: 0 = Not at all Trouble relaxin = Not at all Being so restless that it is hard to sit still: 0 = Not at all Becoming easily annoyed or irritable: 0 = Not at all Feeling afraid as if something awful might happen: 0 = Not at all Total ISAAC-7 score (0-4 normal; 5-9 mild; 10-14 moderate; 15-21 severe): 0 Source: Developed by Drs. Logan Montgomery, Eri Sylvester, Jorge Michaels and colleagues, with an educational urmila from [employer]. Review of Systems Const Details: Const Denies chills, Denies fatigue, Denies fever(s), Denies headache(s) and Denies weakness ENT Denies dizziness and Denies headache(s) Card Denies chest pain, Denies lightheadedness, Denies dyspnea and Denies other (Palpitations) Resp Denies cough, Denies dyspnea, Denies wheezing and Denies other ( shortness of breath) GI Denies abdominal pain, Denies melena, Denies hematochezia, Denies change in bowel habits, Denies dyspepsia and Denies nausea Denies hematuria and Denies dysuria Musc Denies abnormal gait, Denies myalgias, Denies arthralgias, Denies numbness and Denies tingling Skin/Breast Denies rash, Denies unusual bruising and Denies wounds Neuro Denies abnormal gait, Denies dizziness, Denies headache(s), Denies memory loss, Denies numbness, Denies Sensory deficit (Neuro), Denies tingling and Denies weakness Psych Denies anxiety, Denies depression, Denies memory loss Endo Denies cold intolerance, Denies fatigue, Denies heat intolerance, Denies polydipsia and Denies polyuria Aller/Immun Denies wheezing Physical exam (Primary Care) Vital Signs: Last Vital Signs Temp 97.7 F 05/26/24 12:38 Pulse 94 05/26/24 12:38 Resp 16 05/26/24 12:38 BP 120/58 L 05/26/24 12:38 Pulse Ox 96 05/26/24 12:38 Oxygen Delivery Method Room Air 05/26/24 12:38 BMI result Body Mass Index 31.0 Tobacco/Smoking Status: Tobacco use Status Tobacco use date assessed 05/26/24 05/26/24 12:41 Patient Tobacco Use Status Former Tobacco user 05/26/24 12:41 e-Cigarette/Vaping Use Never Used 05/26/24 12:41 Thrive Assessment: Date of Thrive Assessment Date Thrive assessed 04/25/24 05/26/24 12:41 Currently or been in a relationship where the following occur: No concerns reported Const Other: General: no acute distress and well developed Nutritional Appearance: well nourished Orientation/consciousness: patient oriented x3 HENMT Head: Yes normocephalic and Yes atraumatic Eyes General: appearance normal, both eyes and all related structures Pupils: Equal, round and reactive pupils present EOM: EOMs intact bilaterally Resp Effort & Inspection: normal respiratory effort Auscultation: clear to auscultation bilaterally Cardio Rate: regular rate Rhythm: regular rhythm Heart sounds: S1 normal heart sound present, S2 normal heart sound present, no gallops, no murmurs and no rubs GI Palpation (GI): No Abdominal aortic bruit present, Soft to palpation, nontender, No hepatosplenomegaly present and No Rebound tenderness present Auscultation: normal bowel sounds General: Yes no CVA tenderness Back/Spine/Pelvis Back: no CVA tenderness Cervical Spine: cervical ROM normal and No Cervical spine tenderness Thoracic/Lumbar Spine: thoraco-lumbar ROM normal, No pain with thoraco-lumbar ROM, No thoracic spinal tenderness and No lumbar spinal tenderness Extrem General: Yes normal to inspection, No edema and No calf tenderness Skin General: warm and dry. Normal skin color. Normal skin turgor Neuro General: patient oriented x3, gait normal and no focal neuro deficit Cranial nerves: Yes Equal, round and reactive pupils present Cognition (Neuro): normal cognition Gait exam (Neuro): Normal gait present Sensory Exam: No Sensory deficit (Neuro) Psych Appearance: grossly normal Affect: normal affect Attitude: cooperative Thought process: Normal thought process present Coding Level of Care Code Est Pt Level 3 (38791) Diagnoses Primary hypertension I10 Hypertension type: primary hypertension Assessment & Plan Assessment & Plan (1) Hypertension: Code(s): I10 - Essential (primary) hypertension Category: Medical Qualifiers: Hypertension type: primary hypertension Qualified Code(s): I10 - Essential (primary) hypertension Plan: Resting blood pressure is 100/50, within goal of less than 130/80. Systolic blood pressure is below goal of greater than 60. Will hold chlorthalidone at this time. Advised to stop taking the medication until he is re-evaluated at next visit. Continue to take amlodipine 10 mg daily and losartan 50 mg daily. Low-sodium diet encouraged. Encouraged to monitor his blood pressure and heart rate 2 to 3 times weekly, and blood pressure consistently above 130/80 and heart rate consistently over 100. Follow-up in 2 months for hypertension and diabetes. Return sooner with symptoms or concerns. Verbalized understanding and agreed with treatment plan. Medications: On Hold chlorthalidone Hold Comment: Doctor's Order 25 mg PO DAILY 90 days 90 tabs 0RF
[2024-05-26 12:38] VITALS: BP 120/58; PULSE 94; RESP 16; TEMP 36.5; O2SAT 96; BMI 31.0
[2024-05-26 12:54] VITALS: BP 100/50; PULSE 96
== END 2024-05-26 13:01 | disposition home or self-care (01) ==
LOC: HO.HMCFM 12:33
PROVIDERS: PCP Nurse Practitioner Family; Visit Provider Nurse Practitioner Family
DX: I10 Essential (primary) hypertension (principal)

== ENCOUNTER → 2024-05-26 12:33 | Outpatient (BNVA) | payer MEDICARE, SELFPAY | PROVIDERS: PCP Nurse Practitioner Family; Visit Provider Nurse Practitioner Family | DX: I10 Essential (primary) hypertension (principal) | CPT/HCPCS: 99212 ==

== ENCOUNTER 2024-08-05 12:55 | Outpatient (REF) | payer MEDICARE, SELFPAY ==
--- NOTE | ~2024-08-05 | US_ITS ---
EXAMINATION: US BLADDER HISTORY: R39.12 - Poor urinary stream COMPARISON: There are no prior studies available for comparison. FINDINGS: Sonographic examination of the urinary bladder was performed before and after voiding. Before voiding, the urinary bladder measured 7.1 x 6.5 x 6.6, for an estimated volume of 159 mL. After voiding, the urinary bladder measured 5.0 x 2.7 x 3.9, for an estimated volume of 27 mL. No intrinsic bladder abnormality is identified. Bilateral ureteral jets are identified. The prostate measures 4.7 x 4.5 x 5.0 cm, for an estimated volume of 54.9 mL. US/US bladder IMPRESSION: Unremarkable ultrasound of the urinary bladder. Post void bladder residual of 27 mL. Prostate volume of 54.9 mL. Electronically signed by: Logan Becker MD 08/05/2024 02:23 PM EDT
== END 2024-08-05 12:56 | disposition home or self-care (01) ==
LOC: HO.US 12:55
PROVIDERS: PCP Nurse Practitioner Family; Visit Provider Urology
DX: R39.12 Poor urinary stream (principal); R97.20 Elevated prostate specific antigen [PSA]
CPT/HCPCS: 76857

== ENCOUNTER → 2024-08-05 12:56 | Outpatient (BNV) | payer MEDICARE, SELFPAY | PROVIDERS: PCP Nurse Practitioner Family; Visit Provider Radiology Diagnostic Radiology | DX: R39.14 Feeling of incomplete bladder emptying (principal) | CPT/HCPCS: 76857 ==

== ENCOUNTER 2024-08-28 12:35 | Outpatient (REF) | payer MEDICARE, SELFPAY ==
[2024-08-28 15:06] LABS: PSA,Total (Free>4and<10) 4.72 ng/mL (0.00-4.00)
[2024-08-29 12:59] LABS: Free Prostate Spec Ag 0.8 ng/mL; Percent Free Prostate Spec Ag 18 % (calc) (>25); Prostate Specific Ag Total 4.4 ng/mL (< OR = 4.0)
== END 2024-08-28 12:36 | disposition home or self-care (01) ==
LOC: HO.WFDLDS 12:35
PROVIDERS: Visit Provider Urology
DX: R97.20 Elevated prostate specific antigen [PSA] (principal)
CPT/HCPCS: 36415; 84153; 84154

== ENCOUNTER 2024-09-01 14:35 | Outpatient (AMB) | payer MEDICARE, SELFPAY ==
--- NOTE | 2024-09-01 14:30 | MHC.OFFVIS ---
Intake Visit Reasons: 6m/US/PSA Intake Note: Patient is present for ELEVATED PSA/WEAL URINARY STREAM Urology Medication:Tamsulosin Antibiotic Allergy:NONE Blood Thinner:NONE PSA 08/28/24 :4.72 Imaging :08/05/24 Associate Sales Manager Required: No Accompanied by: Self / Same As Patient Allergies No Known Allergies Allergy (Verified 09/01/24 14:47) Medication List - Last Reconciled 09/01/24 by ЮЛИЯ KraftP- amlodipine 10 mg PO DAILY 90 days atorvastatin 40 mg PO DAILY blood pressure test kit-medium As directed chlorthalidone 25 mg PO DAILY 90 days Held on 05/26/24. Instructions: Doctor's Order citalopram 40 mg PO DAILY 90 days losartan 50 mg PO DAILY 30 days metformin 500 mg PO BID 90 days omeprazole 20 mg PO DAILY 90 days tamsulosin 0.4 mg PO DAILY 90 days HPI Comments Details: Atul is a pleasant 74-year-old male patient of . He has a past medical history of umbilical hernia, depression, GERD, diabetes, arthritis, and low-back pain. He presents to the office today for follow-up of his elevated PSA. Of note, patient was seen approximately 6 months ago as a new patient with Dr. Hernandes at which time recommendations were made for a bladder ultrasound and a PSA in 6 months. Recent bladder ultrasound results were reviewed 08/27 unremarkable ultrasound of the urinary bladder. Prostate measures approximately 55 mL. PSAs are as follows: PSA 07/26 4.0, 12/26 4.0, 08/27 4.7 % free PSA 18% PCPT risk calculator results were reviewed with the patient today. 70% chance prostate biopsy negative, 21% chance low-grade prostate cancer, and 9% chance high-grade prostate cancer. When asked he denies any known family history of prostate cancer. During last office visit KATHARINA was performed with Dr. Hernandes that noted 1+. He reports compliance with Flomax and feels this has been helpful in urinary stream and episodes of nocturia he had been experiencing. We did discussed at length potential causes of elevated PSA as well as further treatment options to include surveillance monitoring verses trial of finasteride verses MRI of the prostate verses prostate biopsy. Risks and benefits of these interventions were discussed. All questions were answered. He denies hematuria, dysuria, foul smelling urine, changes to urinary stream, flank pain, fever, and or chills. He is happy with his current voiding parameters. He denies any bothersome urinary issues or concerns. He otherwise offers no other issues or concerns at this time. [facility] Medical History Overweight Umbilical hernia Rotator cuff arthropathy of left shoulder Depression Acid reflux Diabetes Arthritis Low back pain Surgical History Previous back surgery Family History Father High blood pressure Mother Cancer Social History Housing: Apartment Patient Tobacco Use Status: Former Tobacco user e-Cigarette/Vaping Use: Never Used service: No Current occupational status: retired Cognitive needs: No Hearing needs: No Vision needs: No Review of Systems Const All systems reviewed & are unremarkable except as noted in HPI and below Physical Exam Const General: cooperative, healthy appearing, comfortable, no acute distress, well developed, alert and awake Orientation/consciousness: patient oriented x3 Limitations: no limitations HEENT Head: Yes normal to inspection, Yes normocephalic and Yes atraumatic Ears: hearing grossly normal bilaterally Eyes General: appearance normal, both eyes and all related structures Neck Neck: Yes normal visual inspection and Yes trachea midline Chest Chest palpation & inspection: normal inspection of the chest Resp Effort & Inspection: normal respiratory effort and able to speak in complete sentences Cardio Rate: regular rate GI Inspection: Yes normal to inspection General: Yes no CVA tenderness Back/Spine/Pelvis Back: no CVA tenderness Skin General skin exam: no rashes or lesions noted Neuro General: patient oriented x3 Extrem General: Yes normal to inspection Psych Appearance: grossly normal and well kempt Mental Status: mental status grossly normal Speech and movement: Normal speech and movement present and Clear speech present Affect: normal affect Attitude: cooperative Thought process: Normal thought process present Thought content: Normal thought content present Insight: Fair insight present (Psych) Judgement: Fair judgement present (Psych) Results AMB Urinalysis, Automated UA Leukoctes 0 Helen/uL Last Edit by Isabel Orosco MA on 09/01/24 14:58 UA Nitrite Negative Last Edit by Isabel Orosco MA on 09/01/24 14:58 UA Urobilinogen 0.2 mg/dL Last Edit by Isabel Orosco RI on 09/01/24 14:58 UA Protein 15 mg/dL Last Edit by Isabel Orosco, RI on 09/01/24 14:58 UA pH 6.0 Last Edit by Isabel Orosco, RI on 09/01/24 14:58 UA Blood 0 Joce/uL Last Edit by Isabel Orosco, RI on 09/01/24 14:58 UA Specific [place] 1.025 Last Edit by Isabel Orosco, RI on 09/01/24 14:58 UA Ketone Negative Last Edit by Isabel Orosco MA on 09/01/24 14:58 UA Bilirubin 1 mg/dL Last Edit by Isabel Orosco, RI on 09/01/24 14:58 UA Glucose 0 mg/dL Last Edit by Isabel Orosco, RI on 09/01/24 14:58 Results Reviewed Results Reviewed: Date of Service: 08/05/24 Procedure(s): US bladder FINDINGS: Sonographic examination of the urinary bladder was performed before and after voiding. Before voiding, the urinary bladder measured 7.1 x 6.5 x 6.6, for an estimated volume of 159 mL. After voiding, the urinary bladder measured 5.0 x 2.7 x 3.9, for an estimated volume of 27 mL. No intrinsic bladder abnormality is identified. Bilateral ureteral jets are identified. The prostate measures 4.7 x 4.5 x 5.0 cm, for an estimated volume of 54.9 mL. IMPRESSION: Unremarkable ultrasound of the urinary bladder. Post void bladder residual of 27 mL. Prostate volume of 54.9 mL. Assessment & Plan Assessment & Plan (1) Elevated PSA: Code(s): R97.20 - Elevated prostate specific antigen [PSA] Category: Medical (2) Enlarged prostate: Code(s): N40.0 - Benign prostatic hyperplasia without lower urinary tract symptoms Category: Medical Plan In office urinalysis results reviewed with the patient today; as noted above. Recent PSA results reviewed with the patient today; as noted above. Recent bladder ultrasound results reviewed with the patient today; as noted above. We discussed at length potential causes of elevated PSA as well as further treatment options and risks and benefits of these treatment options. All questions were answered. Continue Flomax as discussed and prescribed Start finasteride 5 mg daily as discussed and prescribed. Will obtain PSA in 4 months. Follow-up in 4 months with PSA and PVR; or sooner with any issues, concerns, and or questions. Orders: Orders AMB Urinalysis Automated Today Z13.9 - Encounter for screening, unspecified PSA,Total (Free>4and<10) 4 Months R97.20 - Elevated prostate specific antigen [PSA] Medications: New finasteride 5 mg PO DAILY 90 tabs 1RF 90 days N32.0 - Bladder-neck obstruction Patient Instructions: The patient had an opportunity to ask questions regarding the treatment plan. All questions were answered. Physical exam, labs, and imaging were discussed and reviewed in detail. As well as risks, benefits, and discussion of treatment choices. No major barriers to understanding were identified. The patient expressed understanding and agreement with the above treatment plan. The patient was made aware they should contact our office by phone for worsening of their current condition, the appearance of new symptoms, or with any questions or concerns. Compliance is encouraged with any medications and follow up testing that is ordered. It is a privilege to be allowed the opportunity to participate in? your urological care.? Again, if you have any questions or concerns If you have any questions or concerns please do not hesitate to contact me. The office is [phone]. This note is constructed using voice recognition software. While every effort has been made to ensure accuracy performance improvement analyst errors may have been included. Yours sincerely, GLENROY Kraft Coding Level of Care Code Est Pt Level 4 (54406) Complex EM visit Add On G2211 Diagnoses Elevated PSA R97.20 Enlarged prostate N40.0
== END 2024-09-01 15:11 | disposition home or self-care (01) ==
LOC: HO.HUSH 14:36
PROVIDERS: PCP Nurse Practitioner Family; Visit Provider Nurse Practitioner Family
DX: R97.20 Elevated prostate specific antigen [PSA] (principal); N40.0 Benign prostatic hyperplasia without lower urinary tract symptoms; Z13.9 Encounter for screening, unspecified
CPT/HCPCS: 99214; G2211

== ENCOUNTER → 2024-09-01 14:35 | Outpatient (BNVA) | payer MEDICARE, SELFPAY | PROVIDERS: PCP Nurse Practitioner Family; Visit Provider Nurse Practitioner Family | DX: R97.20 Elevated prostate specific antigen [PSA] (principal); N40.0 Benign prostatic hyperplasia without lower urinary tract symptoms | CPT/HCPCS: 81003; 99212 ==

== ENCOUNTER 2024-12-16 12:34 | Outpatient (REF) | payer MEDICARE, SELFPAY ==
[2024-12-16 14:50] LABS: PSA,Total (Free>4and<10) 5.25 ng/mL (0.00-4.00)
[2024-12-17 13:03] LABS: Free Prostate Spec Ag 0.5 ng/mL; Percent Free Prostate Spec Ag 11 % (calc) (>25)
== END 2024-12-16 12:35 | disposition home or self-care (01) ==
LOC: HO.WFDLDS 12:34
PROVIDERS: Visit Provider Nurse Practitioner Family
DX: R97.20 Elevated prostate specific antigen [PSA] (principal); Z12.5 Encounter for screening for malignant neoplasm of prostate
CPT/HCPCS: 36415; 84153; 84154

== ENCOUNTER 2024-12-31 14:35 | Outpatient (AMB) | payer MEDICARE, SELFPAY ==
--- NOTE | 2024-12-31 14:37 | MHC.OFFVIS ---
Intake Visit Reasons: 4m/psa Intake Note: Patient is present for 4M/PSA Urology Medication:FINASTERIDE,TAMSULSOIN Antibiotic Allergy:NONE Blood Thinner:NONE Lumber Scaler Required: No Allergies No Known Allergies Allergy (Verified 12/31/24 15:00) Medication List - Last Reconciled 12/31/24 by SUNG Kraft- amlodipine 10 mg PO DAILY 90 days atorvastatin 40 mg PO DAILY blood pressure test kit-medium As directed chlorthalidone 25 mg PO DAILY 90 days Held on 05/26/24. Instructions: Doctor's Order citalopram 40 mg PO DAILY 90 days finasteride 5 mg PO DAILY 90 days losartan 50 mg PO DAILY 30 days metformin 500 mg PO BID 90 days omeprazole 20 mg PO DAILY 90 days tamsulosin 0.4 mg PO DAILY 90 days HPI Comments Details: Atul is a pleasant 74-year-old male patient of . He has a past medical history of umbilical hernia, depression, GERD, diabetes, arthritis, and low-back pain. He presents to the office today for follow-up of his elevated PSA. In discussion with the patient today he reports to be doing and feeling well. He reports compliance with finasteride and flomax as prescribed. He denies having had any bothersome urinary issues or concerns since his last office visit here. Recent PSA results reviewed with the patient today as noted and trended below: PSA 07/26 4.0, 12/26 4.0, 08/27 4.7 % free PSA 18%, 12/27 5.3 % free PSA 11% Previous workup has included a bladder ultrasound 08/27 unremarkable ultrasound of the urinary bladder. Prostate measures approximately 55ml's. When asked he denies any known family history of prostate cancer. During previous office visit KATHARINA was performed with Dr. Hernandes that noted 1+. He reports significant improvement in episodes of nocturia and weak urinary stream he had been experiencing with current regimen. We did discussed at length potential causes of elevated PSA as well as further treatment options to include surveillance monitoring verses MRI of the prostate verses prostate biopsy. Risks and benefits of these interventions were discussed. All questions were answered. He denies hematuria, dysuria, foul smelling urine, changes to urinary stream, flank pain, fever, and or chills. He is happy with his current voiding parameters. He denies any bothersome urinary issues or concerns. He otherwise offers no other issues or concerns at this time. [facility] Medical History Overweight Umbilical hernia Rotator cuff arthropathy of left shoulder Depression Acid reflux Diabetes Arthritis Low back pain Surgical History Previous back surgery Family History Father High blood pressure Mother Cancer Social History Housing: Apartment Patient Tobacco Use Status: Former Tobacco user e-Cigarette/Vaping Use: Never Used service: No Current occupational status: retired Cognitive needs: No Hearing needs: No Vision needs: No Review of Systems Const All systems reviewed & are unremarkable except as noted in HPI and below Physical Exam Const General: cooperative, healthy appearing, comfortable, no acute distress, well developed, alert and awake Orientation/consciousness: patient oriented x3 Limitations: no limitations HEENT Head: Yes normal to inspection, Yes normocephalic and Yes atraumatic Ears: hearing grossly normal bilaterally Eyes General: appearance normal, both eyes and all related structures Neck Neck: Yes normal visual inspection and Yes trachea midline Chest Chest palpation & inspection: normal inspection of the chest Resp Effort & Inspection: normal respiratory effort and able to speak in complete sentences Cardio Rate: regular rate GI Inspection: Yes normal to inspection General: Yes no CVA tenderness Back/Spine/Pelvis Back: no CVA tenderness Skin General skin exam: no rashes or lesions noted Neuro General: patient oriented x3 Extrem General: Yes normal to inspection Psych Appearance: grossly normal and well kempt Mental Status: mental status grossly normal Speech and movement: Normal speech and movement present and Clear speech present Affect: normal affect Attitude: cooperative Thought process: Normal thought process present Thought content: Normal thought content present Insight: Fair insight present (Psych) Judgement: Fair judgement present (Psych) Results AMB Urinalysis, Automated UA Leukoctes 0 Helen/uL Last Edit by JYOTI Roman on 12/31/24 14:54 UA Nitrite Negative Last Edit by JYOTI Roman on 12/31/24 14:54 UA Urobilinogen 0.2 mg/dL Last Edit by JYOTI Roman on 12/31/24 14:54 UA Protein 15 mg/dL Last Edit by JYOTI Roman on 12/31/24 14:54 UA pH 6.0 Last Edit by Concha Tony CCM on 12/31/24 14:54 UA Blood 0 Joce/uL Last Edit by JYOTI Roman on 12/31/24 14:54 UA Specific [place] 1.030 Last Edit by Concha Tony CCM on 12/31/24 14:54 UA Ketone Negative Last Edit by Concha Tony CCM on 12/31/24 14:54 UA Bilirubin 0 mg/dL Last Edit by JYOTI Roman on 12/31/24 14:54 UA Glucose 0 mg/dL Last Edit by Concha Tony CCM on 12/31/24 14:54 Results Reviewed Results Reviewed: Laboratory Last Values Urine pH (Auto) 6.0 12/31/24 14:53 Specific [place] (Auto) 1.030 12/31/24 14:53 Urine Protein (Auto) 15 mg/dL 12/31/24 14:53 Glucose (UA)(Auto) 0 mg/dL 12/31/24 14:53 Urine Ketones (Auto) Negative 12/31/24 14:53 Urine Blood (Auto) 0 Joce/uL 12/31/24 14:53 Urine Nitrite (Auto) Negative 12/31/24 14:53 Urine Bilirubin (Auto) 0 mg/dL 12/31/24 14:53 Urine Urobilinogen (Auto) 0.2 mg/dL 12/31/24 14:53 Leukocyte Esterase (Auto) 0 Helen/uL 12/31/24 14:53 Assessment & Plan Assessment & Plan (1) Enlarged prostate: Code(s): N40.0 - Benign prostatic hyperplasia without lower urinary tract symptoms Category: Medical (2) Elevated PSA: Code(s): R97.20 - Elevated prostate specific antigen [PSA] Category: Medical Plan In office urinalysis results reviewed with the patient today; as noted above. Recent PSA results reviewed with the patient today; as noted above. Continue finasteride as discussed and prescribed. We did discussed potential causes of elevated PSA despite compliance with finasteride We did discussed further treatment options and risks and benefits of these treatment options Will obtain MRI of the prostate for further assessment evaluation. We did discuss obtaining redraw of PSA with no sex the night before, no caffeine morning of, and no heavy lifting 1-2 days prior. We also discussed the importance of limiting fluids 2-3 hours prior to bed to decrease episodes of nocturia. All questions were answered. Follow-up in 1-3 months with imaging and labs; or sooner with any issues, concerns, and or questions. Orders: Orders AMB Urinalysis Automated Today Z13.9 - Encounter for screening, unspecified PSA,Total (Free>4and<10) Today N40.0 - Benign prostatic hyperplasia without lower urinary tract symptoms, R97.20 - Elevated prostate specific antigen [PSA] MR Prostate wo/w con Today R97.20 - Elevated prostate specific antigen [PSA] Medications: Refilled finasteride 5 mg PO DAILY 90 tabs 1RF 90 days N32.0 - Bladder-neck obstruction Patient Instructions: The patient had an opportunity to ask questions regarding the treatment plan. All questions were answered. Physical exam, labs, and imaging were discussed and reviewed in detail. As well as risks, benefits, and discussion of treatment choices. No major barriers to understanding were identified. The patient expressed understanding and agreement with the above treatment plan. The patient was made aware they should contact our office by phone for worsening of their current condition, the appearance of new symptoms, or with any questions or concerns. Compliance is encouraged with any medications and follow up testing that is ordered. It is a privilege to be allowed the opportunity to participate in? your urological care.? Again, if you have any questions or concerns If you have any questions or concerns please do not hesitate to contact me. The office is [phone]. This note is constructed using voice recognition software. While every effort has been made to ensure accuracy food management aide errors may have been included. Yours sincerely, GLENROY Kraft Coding Level of Care Code Est Pt Level 3 (38577) Complex EM visit Add On G2211 Diagnoses Enlarged prostate N40.0 Elevated PSA R97.20
== END 2024-12-31 15:00 | disposition home or self-care (01) ==
LOC: HO.HUSH 14:36
PROVIDERS: PCP Nurse Practitioner Family; Visit Provider Nurse Practitioner Family
DX: N40.0 Benign prostatic hyperplasia without lower urinary tract symptoms (principal); R97.20 Elevated prostate specific antigen [PSA]; Z13.9 Encounter for screening, unspecified
CPT/HCPCS: 99213; G2211

== ENCOUNTER → 2024-12-31 14:35 | Outpatient (BNVA) | payer MEDICARE, SELFPAY | PROVIDERS: PCP Nurse Practitioner Family; Visit Provider Nurse Practitioner Family | DX: N40.0 Benign prostatic hyperplasia without lower urinary tract symptoms (principal); R97.20 Elevated prostate specific antigen [PSA] | CPT/HCPCS: 81003; 99212 ==

== ENCOUNTER 2025-01-16 12:53 | Outpatient (AMB) | payer MEDICARE, SELFPAY ==
--- NOTE | 2025-01-16 12:55 | A.OFFPC_ITS ---
Vital Signs 01/16/25 13:01 01/16/25 13:23 Height 5 ft 7 in Weight 199 lb 2 oz BMI 31.2 BP 133/66 120/60 Blood Pressure Location Lt brachial Rt brachial Position Sitting Sitting Respiration 16 Pulse 91 Pulse Source Pulse Oximeter Temp 98.1 F Temp Source Oral Pulse Oximetry (%) 98 Oxygen Delivery Method Room Air Intake Visit Reasons: Diabetis check up,sleep issue Intake Note: patient here for follow up DM and sleep issues Insurance Writer Required: No Allergies No Known Allergies Allergy (Verified 01/16/25 13:16) Medication List - Last Reconciled 01/16/25 by Keven Traore CNP amlodipine 10 mg PO DAILY 90 days atorvastatin 40 mg PO DAILY blood pressure test kit-medium As directed chlorthalidone 25 mg PO DAILY 90 days Held on 05/26/24. Instructions: Doctor's Order citalopram 40 mg PO DAILY 90 days finasteride 5 mg PO DAILY 90 days losartan 50 mg PO DAILY 30 days metformin 500 mg PO BID 90 days omeprazole 20 mg PO DAILY 90 days tamsulosin 0.4 mg PO DAILY 90 days Tobacco use date assessed: 01/16/25 Fall risk assessment: No Falls in past year Last assessed Fall Risk: 01/16/25 Dental Screening Dental Screen Date: 01/16/25 Did you have a dental visit in the last 12 months?: No Did you have a dental problem in the last 6 months where you did not have access to dental care?: No Was dental information given to patient?: No HPI HPI Comments History of Present Illness Details 74-year-old male presents for hypertensi on and diabetes follow-up. He admits to taking his medications as prescribed without adverse reactions. He has not taken chlorthalidone since it was held in 05/26/2024. He notes that he has been making dietary choices changes. He notes not exercise. He requests a referral to sleep medicine for sleep apnea. He notes h/o sleep apnea, on cpap for 10-12 years, until 4-5 years ago. He states that his sleep is adequate and sleeps 8 hours nightly. His last office visit was in May 2024. Last A1c in April was 6.6%. No acute symtpoms at this time. [facility] Medical History Overweight Umbilical hernia Rotator cuff arthropathy of left shoulder Depression Acid reflux Diabetes Arthritis Low back pain Surgical History Previous back surgery Family History Father High blood pressure Mother Cancer Social History Housing: Apartment Patient Tobacco Use Status: Former Tobacco user e-Cigarette/Vaping Use: Never Used Second Hand Smoke Exposure: No service: No Current occupational status: retired Current occupational exposures/hazards: No Cognitive needs: No Hearing needs: No Vision needs: No Questionnaire Thrive Questionnaire Date Thrive assessed: 04/25/24 I am a: Patient What is your living situation today?: I have a steady place to live Within the past 12 months, did the food you bought not last and you didn't have the money to get more?: Never true Within the past 12 months, did you worry whether your food would run out before you got money to buy more?: Never true Do you have trouble paying for medicines?: No Do you have trouble getting transportation to medical appointments?: No Do you have trouble paying your heating and electricity bill?: No Do you have trouble taking care of your child, family member or friend?: No Do you have trouble with day-to-day activities such as bathing, preparing meals, shopping, managing finances, etc.?: No Are you currently unemployed and looking for a job?: No Are you interested in more education?: No Please select the resources that you would like help with: None Currently or been in a relationship where the following occur: No concerns reported THRIVE Score: 0 ISAAC-7 AMB Questionnaire ISAAC-7 Date ISAAC - 7 assessed: 04/25/24 Source: Developed by Drs. Logan Montgomery, Eri Sylvester, Jorge Michaels and colleagues, with an educational urmila from [employer]. Review of Systems Const Details: Const Denies chills, Denies fatigue, Denies fever(s), Denies headache(s) and Denies weakness ENT Denies dizziness and Denies headache(s) Card Denies chest pain, Denies lightheadedness, Denies dyspnea and Denies other (Palpitations) Resp Denies cough, Denies dyspnea, Denies wheezing and Denies other ( shortness of breath) GI Denies abdominal pain, Denies melena, Denies hematochezia, Denies change in bowel habits, Denies dyspepsia and Denies nausea Denies hematuria and Denies dysuria Musc Denies abnormal gait, Denies myalgias, Denies arthralgias, Denies numbness and Denies tingling Skin/Breast Denies rash, Denies unusual bruising and Denies wounds Neuro Denies abnormal gait, Denies dizziness, Denies headache(s), Denies memory loss, Denies numbness, Denies Sensory deficit (Neuro), Denies tingling and Denies weakness Psych Denies anxiety, Denies depression, Denies memory loss Endo Denies cold intolerance, Denies fatigue, Denies heat intolerance, Denies polydipsia and Denies polyuria Aller/Immun Denies wheezing Physical exam (Primary Care) Vital Signs: Last Vital Signs Temp 98.1 F 01/16/25 13:01 Pulse 91 01/16/25 13:01 Resp 16 01/16/25 13:01 BP 133/66 01/16/25 13:01 Pulse Ox 98 01/16/25 13:01 Oxygen Delivery Method Room Air 01/16/25 13:01 BMI result Body Mass Index 31.2 Tobacco/Smoking Status: Tobacco use Status Tobacco use date assessed 01/16/25 01/16/25 13:06 Patient Tobacco Use Status Former Tobacco user 01/16/25 12:59 e-Cigarette/Vaping Use Never Used 01/16/25 12:59 Thrive Assessment: Date of Thrive Assessment Date Thrive assessed 04/25/24 01/16/25 12:59 Currently or been in a relationship where the following occur: No concerns reported Const Other: General: no acute distress and well developed Nutritional Appearance: well nourished Orientation/consciousness: patient oriented x3 HENMT Head: Yes normocephalic and Yes atraumatic Eyes General: appearance normal, both eyes and all related structures Pupils: Equal, round and reactive pupils present EOM: EOMs intact bilaterally Resp Effort & Inspection: normal respiratory effort Auscultation: clear to auscultation bilaterally Cardio Rate: regular rate Rhythm: regular rhythm Heart sounds: S1 normal heart sound present, S2 normal heart sound present, no gallops, no murmurs and no rubs Extrem General: Yes normal to inspection, No edema and No calf tenderness Skin General: warm and dry. Normal skin color. Normal skin turgor Neuro General: patient oriented x3, gait normal and no focal neuro deficit Cranial nerves: Yes Equal, round and reactive pupils present Cognition (Neuro): normal cognition Gait exam (Neuro): Normal gait present Sensory Exam: No Sensory deficit (Neuro) Psych Appearance: grossly normal Affect: normal affect Attitude: cooperative Thought process: Normal thought process present Coding Level of Care Code Est Pt Level 3 (11755) Diagnoses Diabetes E11.9 Primary hypertension I10 Hypertension type: primary hypertension Sleep apnea G47.30 Laboratory tests ordered as part of a complete physical exam (CPE) Z00.00 Assessment & Plan Assessment & Plan (1) Diabetes: Code(s): E11.9 - Type 2 diabetes mellitus without complications Category: Medical Plan: A1c today is 6.3%, within goal of less than 7.0%. Previous A1c was 6.6%. Continue current treatment regimen. Will recheck A1c in 3 months. Perform lab work at least a few days before next visit. Follow-up for an extended physical exam in a month or sooner with symptoms or concerns. Verbalized understanding and agreed with the plan. (2) Hypertension: Code(s): I10 - Essential (primary) hypertension Category: Medical Qualifiers: Hypertension type: primary hypertension Qualified Code(s): I10 - Essential (primary) hypertension Plan: Resting blood pressure is 120/60, within goal of less than 130/80. He has not taken chlorthalidone since it was held in 05/26/2024. Will discontinue chlorthalidone at this time. Continue to take amlodipine and losartan as prescribed. Routine exercise encouraged. Follow-up as planned. Verbalized understanding and agreed with the plan. (3) Sleep apnea: Code(s): G47.30 - Sleep apnea, unspecified Category: Medical Plan: History of sleep apnea. Was on CPAP for 10-12 years, until 4-5 years ago. Reports adequate sleep. Referred to sleep medicine. (4) Laboratory tests ordered as part of a complete physical exam (CPE): Code(s): Z00.00 - Encounter for general adult medical examination without abnormal findings Category: Medical Plan: Fasting labs ordered as part of a complete physical exam. Advised to fast for at least 10 hours before getting labs drawn. May drink water Verbalized understanding and agreed with treatment plan. Orders: Orders Complete Blood Count Auto Diff Today Z00.00 - Encounter for general adult medical examination without abnormal findings Comprehensive [place]. Panel Fast Today Z00.00 - Encounter for general adult medical examination without abnormal findings Lipid Panel Today Z00.00 - Encounter for general adult medical examination without abnormal findings UA CC w/rflx Micro + Cult Today Z00.00 - Encounter for general adult medical examination without abnormal findings Vitamin D 25-OH Total Today Z00.00 - Encounter for general adult medical examination without abnormal findings TSH reflex Free T4 Today Z00.00 - Encounter for general adult medical examination without abnormal findings Hemoglobin A1c Today E11.9 - Type 2 diabetes mellitus without complications Microalbumin, Random (w Creat) Today Z00.00 - Encounter for general adult medical examination without abnormal findings Referrals Sleep Medicine Referral G47.30 - Sleep apnea, unspecified Medications: Discontinued chlorthalidone Discontinued Reason: Doctor's Order 25 mg PO DAILY 90 days 90 tabs 0RF
[2025-01-16 13:01] VITALS: BP 133/66; PULSE 91; RESP 16; TEMP 36.7; O2SAT 98; BMI 31.2
[2025-01-16 13:23] VITALS: BP 120/60
== END 2025-01-16 13:30 | disposition home or self-care (01) ==
LOC: HO.HMCFM 12:54
PROVIDERS: PCP Nurse Practitioner Family; Visit Provider Nurse Practitioner Family
DX: Z13.9 Encounter for screening, unspecified (principal)

== ENCOUNTER 2025-01-16 12:53 | Outpatient (REF) | payer MEDICARE, SELFPAY | END 2025-01-16 12:54 | disposition home or self-care (01) | LOC: HO.LAB 12:53 | PROVIDERS: PCP Nurse Practitioner Family; Visit Provider Nurse Practitioner Family | DX: I10 Essential (primary) hypertension (principal); E11.9 Type 2 diabetes mellitus without complications; G47.30 Sleep apnea, unspecified | CPT/HCPCS: 83036; 99212 ==

== ENCOUNTER 2025-02-13 10:52 | Outpatient (REF) | payer MEDICARE, SELFPAY ==
[2025-02-13 15:13] LABS: Appearance Urine Clear; Glucose Urine UA Negative (Negative); PH 6.5 (5.0-9.0); Specific Gravity - Urine 1.020 (1.005-1.025)
[2025-02-13 15:14] LABS: MANUAL DIFF FLAG NO
[2025-02-13 15:18] LABS: Hematocrit 41.6 % (42.0-52.0); Hemoglobin 14.1 g/dl (14.0-18.0); Imm Gran Abs Auto 0.03 X10*3/uL (0.00-0.03); Imm Gran Pct Auto 0.4 % (0.0-0.4); Lymphocytes Absolute Auto 2.4 X10*3/uL (1.2-4.9); Mean Corpuscular HGB Conc 33.9 g/dl (31.0-36.0); Mean Corpuscular Hemoglobin 31.0 pg (27.0-33.0); Mean Corpuscular Volume 91.4 fL (80.0-98.0); NRBC Abs Auto 0.000 X10*3/uL (0.0-0.012); NRBC Pct Auto 0.0 /100WBC (0.0-0.2); Platelet Count 183 X10*3/uL (160-400); Red Blood Count 4.55 X10*6/uL (4.60-5.80); White Blood Count 6.9 X10*3/uL (4.8-10.8)
[2025-02-13 15:37] LABS: Alanine Aminotransferase 23 U/L (0-40); Albumin Level 4.4 g/dL (3.5-5.0); Alkaline Phosphatase 99 U/L (39-117); Anion Gap 10 (12-20); Aspartate Amino Transferase 24 U/L (5-37); Blood Urea Nitrogen 17 mg/dL (9-16); Calcium 9.2 mg/dL (8.4-10.2); Carbon Dioxide 27 mmol/L (22-29); Chloride 106 mmol/L (96-108); Cholesterol 112 mg/dL (<200); Estimated Glomerular Filt Rate > 60; HDL Cholesterol 49 mg/dL (>40); Potassium 4.3 mmol/L (3.3-5.1); Sodium 139 mmol/L (135-145); Total Protein 6.9 g/dL (6.5-8.0); Triglycerides 80 mg/dL (<150)
[2025-02-13 16:04] LABS: Microalbum/Creatinine Ratio Ur 9.7 ug/mg cr (<30)
== END 2025-02-13 10:53 | disposition home or self-care (01) ==
LOC: HO.WFDLDS 10:52
PROVIDERS: Visit Provider Nurse Practitioner Family
DX: Z00.00 Encounter for general adult medical examination without abnormal findings (principal); Z13.0 Encounter for screening for diseases of the blood and blood-forming organs and certain disorders involving the immune mechanism; Z13.29 Encounter for screening for other suspected endocrine disorder; Z13.21 Encounter for screening for nutritional disorder; Z13.6 Encounter for screening for cardiovascular disorders
CPT/HCPCS: 36415; 80053; 80061; 81003; 82043; 82306; 82570; 84443; 85025

== ENCOUNTER 2025-02-27 08:18 | Outpatient (REF) | payer MEDICARE, SELFPAY ==
--- NOTE | ~2025-02-27 | MR_ITS ---
EXAMINATION: MR PROSTATE WITHOUT THEN WITH IV CONTRAST HISTORY: R97.20 - Elevated prostate specific antigen [PSA] TECHNIQUE: 1.5T body coil survey of the pelvis was performed. Phase array coil imaging of the prostate was performed in multiplanar high resolution axial, coronal, sagittal fast spin echo T2 and axial T1 weighted imaging sequences. Axial diffusion imaging at intermediate and high field performed with ADC mapping. Next, 7.2 mL Gadavist was given by intravenous infusion, and dynamic axial imaging performed. 3-D reconstructions and post-processing were not performed as no discrete lesion was identified. COMPARISON: There are no prior studies available for comparison. CLINICAL DATA: Most recent PSA: 5.25 ng/mL on 12/16/2024. PSA Density: 0.105 ng/mL squared Prostate Biopsy: None reported FINDINGS: Prostate size: 4.8 x 5.4 x 3.7 cm. Calculated prostate volume is 49.9 mL. Hemorrhage: None. Transitional Zone: There is moderate heterogeneous nodular hypertrophy of the transitional zone. Peripheral Zone: No discrete focus of abnormal signal intensity is identified in the peripheral zone. There are no foci of restricted diffusion. Seminal Vesicles/Ejaculatory Ducts: Symmetric and normal in signal and caliber. Pelvic Lymph Nodes: No obturator or internal iliac lymph nodes meeting size criteria for adenopathy. Marrow Signal: There is a sclerotic focus in the right ilium and a tiny sclerotic focus in the L4 vertebral body. MR/MR Prostate wo/w con IMPRESSION: 1. No discrete focus of abnormal signal intensity is identified to suggest clinically significant prostate carcinoma. 2. Sclerotic foci in the right ilium and L4 vertebral body. Plain film correlation is suggested. PI-RADS 1: Very low (clinically significant cancer is highly unlikely to be present) PI-RADS Assessment Categories PI-RADS 1: Very low (clinically significant cancer is highly unlikely to be present) PI-RADS 2: Low (clinically significant cancer is unlikely to be present) PI-RADS 3: Intermediate (the presence of clinically significant cancer is equivocal) PI-RADS 4: High (clinically significant cancer is likely to be present) PI-RADS 5: Very high (clinically significant cancer is highly likely to be present) [employer]. MR Prostate Imaging Reporting and Data System version 2.1. [email or web address] Electronically signed by: Logan Becker MD 02/27/2025 09:54 AM EST
== END 2025-02-27 08:19 | disposition home or self-care (01) ==
LOC: HO.MRI 08:18
PROVIDERS: PCP Nurse Practitioner Family; Visit Provider Nurse Practitioner Family
DX: R97.20 Elevated prostate specific antigen [PSA] (principal); N40.0 Benign prostatic hyperplasia without lower urinary tract symptoms
CPT/HCPCS: 72197; 76377; A9585

== ENCOUNTER → 2025-02-27 08:18 | Outpatient (BNV) | payer MEDICARE, SELFPAY | PROVIDERS: PCP Nurse Practitioner Family; Visit Provider Radiology Diagnostic Radiology | DX: R97.20 Elevated prostate specific antigen [PSA] (principal); R93.7 Abnormal findings on diagnostic imaging of other parts of musculoskeletal system | CPT/HCPCS: 72197 ==